=== PATIENT | male | born 1955 ===

== ENCOUNTER 2021-02-06 04:38 | Emergency (ER) | payer OTHER ==
[~2021-02-06] VITALS: Ht 182.9 cm; Wt 110.0 kg
[2021-02-06] MEDS ORDERED: METO50 PO (04:59)
[2021-02-06] MEDS ORDERED: PREG50CA63 PO (04:59)
[2021-02-06] MEDS ORDERED: DABI150 PO (04:59)
[2021-02-06] MEDS ORDERED: FURO40TA5 PO (04:59)
[2021-02-06] MEDS ORDERED: BACITRACIN 0.9 GM PACKET OINTMENT TP ONE (05:01)
[2021-02-06] MEDS ORDERED: LORazepam 2 MG/ML VIAL IVP ONE (06:00)
[2021-02-06] MEDS ORDERED: LORazepam 2 MG/ML VIAL IM ONE (06:00)
[2021-02-06 06:29] LABS: BASOPHILS % (AUTO) 1.2 % (0.0-2.0); HEMATOCRIT 41.6 % (41-53); HEMOGLOBIN 14.1 g/dL (13.5-17.5); LYMPHOCYTES % (AUTO) 15.5 % (22.0-44.0); MEAN CORPUSCULAR VOLUME 88 fL (80-100); MONOCYTES # (AUTO) 0.5 K/uL (0.1-1.0); MONOCYTES % (AUTO) 7.4 % (2.0-9.0); NEUTROPHILS # (AUTO) 4.7 K/uL (1.8-7.7); NEUTROPHILS % (AUTO) 73.9 % (40.0-70.0); PLATELET COUNT (AUTO) 116 K/uL (150-450); RED BLOOD CELL COUNT(AUTO) 4.72 MIL/uL (4.50-5.90); RED CELL DISTRIBUTION WIDTH 14.9 % (11.5-14.5)
[2021-02-06 06:41] LABS: ANION GAP 12 mmol/L (8-16); CALCIUM, TOTAL 8.2 mg/dL (8.8-10.5); CARBON DIOXIDE 23 mmol/L (22-29); CHLORIDE 106 mmol/L (98-107); GLOMERULAR FILTR. RATE CALC > 60 mL/min (>60); GLUCOSE,RANDOM 93 mg/dL (70-110); POTASSIUM 3.9 mmol/L (3.5-5.1); SODIUM SERUM 141 mmol/L (136-145); UREA NITROGEN, BLOOD 12 mg/dL (7-18)
[2021-02-06 06:50] LABS: ALANINE AMINOTRANSFERASE 54 U/L (12-78); ALBUMIN 3.3 g/dL (3.4-5.0); ALKALINE PHOSPHATASE 181 U/L (46-116); ASPARTATE AMINOTRANSFERASE 61 U/L (15-37); BILIRUBIN,TOTAL 0.5 mg/dL (0.1-1.0); TOTAL PROTEIN, SERUM 6.2 g/dL (6.4-8.2)
[2021-02-06 09:06] LABS: COVID AG,FIA SOURCE NASOPHARYNGEAL
[2021-02-06 12:07] VITALS: BP 145/95
== END 2021-02-06 13:47 | disposition short-term general hospital (02) ==
LOC: EMS 04:40
DX: F29 Unspecified psychosis not due to a substance or known physiological condition (principal); Z20.822 Contact with and (suspected) exposure to COVID-19
CPT/HCPCS: 36415; 80053; 85025; 87426; 96372; 99285; G0480; J2060

== ENCOUNTER 2021-06-21 13:53 | Inpatient (IN) | payer OTHER ==
[~2021-06-21] VITALS: Ht 188 cm; Wt 78.5 kg
[~2021-06-21 13:53] MED LIST: DABI150 PO; FURO40TA5 PO; METO50 PO; MULT-1239 PO; PREG50CA63 PO; RISP1TAB48 PO
[2021-06-22] MEDS ORDERED: HALOPERIDOL 5 MG TABLET PO PRN (15:15)
[2021-06-22] MEDS ORDERED: ZOLPIDEM TARTRATE 10 MG TABLET PO PRN (15:15)
[2021-06-22] MEDS ORDERED: INFLUENZA VIRUS VACCINE QVS 2021-22 (6MO+)/PF 60 MCG/0.5 ML SYRINGE IM. ONE (16:00)
[2021-06-22] MEDS ORDERED: METOPROLOL TARTRATE 25 MG TABLET ONE (16:04)
[2021-06-22] MEDS: METOPROLOL TARTRATE 50 MG TABLET PO SCH (17:00)
[2021-06-22] MEDS: DABIGATRAN ETEXILATE MESYLATE 150 MG CAPSULE PO SCH (17:37)
[2021-06-22] MEDS: LORazepam 2 MG TABLET PO PRN (17:39)
[2021-06-22] MEDS: PREGABALIN 50 MG CAPSULE PO SCH (17:39)
[2021-06-22] MEDS: RisperiDONE 1 MG TABLET PO SCH (17:42)
[2021-06-23] MEDS: PREGABALIN 50 MG CAPSULE PO SCH ×4 (09:00→17:00)
[2021-06-23] MEDS: FUROSEMIDE 80 MG TABLET PO SCH ×2 (09:00→09:12)
[2021-06-23] MEDS: DABIGATRAN ETEXILATE MESYLATE 150 MG CAPSULE PO SCH ×3 (09:00→17:00)
[2021-06-23] MEDS: METOPROLOL TARTRATE 50 MG TABLET PO SCH ×3 (09:00→17:00)
[2021-06-23] MEDS: RisperiDONE 1 MG TABLET PO SCH (09:12)
[2021-06-23] MEDS ORDERED: PETROLATUM,WHITE 28 GM JELLY TP PRN (09:15)
[2021-06-23] MEDS ORDERED: ALBUTEROL SULFATE HFA 90 MCG/PUFF 8 GM INHALER IH PRN (09:15)
[2021-06-23] MEDS ORDERED: IBUPROFEN 400 MG TABLET PO PRN (09:15)
[2021-06-23] MEDS ORDERED: CloNIDine HCL 0.1 MG TABLET PO PRN (09:15)
[2021-06-23] MEDS ORDERED: GuaiFENesin/D-METHORPHAN [SUGAR-FREE] 200-20MG/10 ML SYRUP UDCUP PO PRN (09:15)
[2021-06-23] MEDS ORDERED: ACETAMINOPHEN 325 MG TABLET PO PRN (09:15)
[2021-06-23] MEDS ORDERED: DOCUSATE SODIUM 100 MG CAPSULE PO PRN (09:15)
[2021-06-23] MEDS ORDERED: MAGNESIUM HYDROXIDE SUSPENSION 30 ML UDCUP PO PRN (09:15)
[2021-06-23] MEDS ORDERED: LOPERAMIDE HCL 2 MG CAPSULE PO PRN (09:15)
[2021-06-23] MEDS ORDERED: MAG HYDROX/AL HYDROX/SIMETH ES 30 ML SUSPENSION UDCUP PO PRN (09:15)
[2021-06-23] MEDS ORDERED: NICOTINE 14 MG/24 HOUR PATCH TD PRN (09:15)
[2021-06-23] MEDS ORDERED: ONDANSETRON HCL 4 MG TABLET PO PRN (09:15)
[2021-06-23] MEDS: RisperiDONE 2 MG TABLET PO SCH (20:29)
[2021-06-24] MEDS: FUROSEMIDE 80 MG TABLET PO SCH (09:00)
[2021-06-24] MEDS: METOPROLOL TARTRATE 50 MG TABLET PO SCH ×2 (09:00→17:00)
[2021-06-24] MEDS: DABIGATRAN ETEXILATE MESYLATE 150 MG CAPSULE PO SCH ×2 (09:00→17:00)
[2021-06-24] MEDS: PREGABALIN 50 MG CAPSULE PO SCH ×3 (09:00→17:00)
[2021-06-24] MEDS: RisperiDONE 2 MG TABLET PO SCH ×2 (09:00→21:00)
[2021-06-25] MEDS: PREGABALIN 50 MG CAPSULE PO SCH ×4 (08:48→17:00)
[2021-06-25] MEDS: METOPROLOL TARTRATE 50 MG TABLET PO SCH ×3 (08:48→17:00)
[2021-06-25] MEDS: RisperiDONE 2 MG TABLET PO SCH ×3 (08:48→21:00)
[2021-06-25] MEDS: DABIGATRAN ETEXILATE MESYLATE 150 MG CAPSULE PO SCH ×3 (08:48→17:00)
[2021-06-25] MEDS: FUROSEMIDE 80 MG TABLET PO SCH ×2 (08:48→09:00)
[2021-06-25] MEDS ORDERED: DiphenhydrAMINE HCL 50 MG/ML VIAL IM ONE (22:15)
[2021-06-25] MEDS ORDERED: LORazepam 2 MG/ML VIAL IM ONE (22:15)
[2021-06-25] MEDS ORDERED: HALOPERIDOL LACTATE 5 MG/ML VIAL IM ONE (22:15)
[2021-06-26] MEDS: METOPROLOL TARTRATE 50 MG TABLET PO SCH ×2 (09:00→17:00)
[2021-06-26] MEDS: DABIGATRAN ETEXILATE MESYLATE 150 MG CAPSULE PO SCH ×2 (09:00→17:00)
[2021-06-26] MEDS: PREGABALIN 50 MG CAPSULE PO SCH ×3 (09:00→17:00)
[2021-06-26] MEDS: RisperiDONE 2 MG TABLET PO SCH (09:00)
[2021-06-26] MEDS: FUROSEMIDE 80 MG TABLET PO SCH (09:00)
[2021-06-26] MEDS ORDERED: DiphenhydrAMINE HCL 50 MG/ML VIAL IM ONE (10:00)
[2021-06-26] MEDS ORDERED: HALOPERIDOL LACTATE 5 MG/ML VIAL IM ONE (10:00)
[2021-06-26] MEDS ORDERED: LORazepam 2 MG/ML VIAL IM ONE (10:00)
[2021-06-26] MEDS: LORazepam 2 MG TABLET PO PRN (10:09)
[2021-06-26 20:22] LABS: BASOPHILS % (AUTO) 0.7 % (0.0-2.0); EOSINOPHILS % (AUTO) 0.3 % (1.0-6.0); HEMATOCRIT 48.8 % (41-53); HEMOGLOBIN 17.4 g/dL (13.5-17.5); LYMPHOCYTES % (AUTO) 13.4 % (22.0-44.0); MEAN CORPUSCULAR HGB CONC 35.7 G/dL (31.0-37.0); MEAN CORPUSCULAR VOLUME 87 fL (80-100); MONOCYTES # (AUTO) 0.3 K/uL (0.1-1.0); MONOCYTES % (AUTO) 4.2 % (2.0-9.0); NEUTROPHILS % (AUTO) 81.4 % (40.0-70.0); PLATELET COUNT (AUTO) 147 K/uL (150-450); RED BLOOD CELL COUNT(AUTO) 5.62 MIL/uL (4.50-5.90); RED CELL DISTRIBUTION WIDTH 14.1 % (11.5-14.5)
[2021-06-26 20:31] LABS: CALCIUM, TOTAL 9.1 mg/dL (8.8-10.5); CREATININE 1.28 mg/dL (0.60-1.30); POTASSIUM 3.8 mmol/L (3.5-5.1)
[2021-06-26 20:34] LABS: INR 1.1 (0.9-1.1); PROTHROMBIN TIME 11.4 SEC (9.4-11.6)
== END 2021-06-26 20:30 | disposition short-term general hospital (02) | DRG 885 ==
LOC: MERGE 06-22 13:44 → 3EI 06-22 13:44
PROVIDERS: ADMIT Psychiatry & Neurology Psychiatry; ATTEND Psychiatry & Neurology Psychiatry
DX: F20.0 Paranoid schizophrenia (principal); G47.00 Insomnia, unspecified; K59.00 Constipation, unspecified; I48.91 Unspecified atrial fibrillation; Z79.899 Other long term (current) drug therapy
CPT/HCPCS: 80048; 85025; 85610; J1200; J1630; J2060

== ENCOUNTER 2021-06-26 20:30 | Inpatient (IN) | payer OTHER ==
[2021-06-26 20:30] VITALS: BP 131/90
[2021-06-27] MEDS ORDERED: ACETAMINOPHEN 325 MG TABLET PO PRN (09:15)
[2021-06-27] MEDS ORDERED: MORPHINE SULFATE 2 MG/ML SYRINGE IVP PRN (09:15)
[2021-06-27] MEDS ORDERED: BISACODYL 10 MG RECTAL RECTAL SUPPOSITORY PR PRN (09:15)
[2021-06-27] MEDS ORDERED: MAGNESIUM HYDROXIDE SUSPENSION 30 ML UDCUP PO PRN (09:15)
[2021-06-27] MEDS ORDERED: ONDANSETRON HCL 4 MG/2 ML VIAL IVP PRN (09:15)
[2021-06-27] MEDS ORDERED: ZOLPIDEM TARTRATE 5 MG TABLET PO PRN (09:15)
[2021-06-27] MEDS ORDERED: HYDROCODONE/ACETAMINOPHEN 5-325 MG TABLET PO PRN (09:15)
[2021-06-27 19:28] VITALS: BP 137/95
[2021-06-27] MEDS: ASCORBIC ACID 500 MG TABLET PO SCH (21:00)
[2021-06-27] MEDS: METOPROLOL TARTRATE 50 MG TABLET PO SCH (21:00)
[2021-06-27] MEDS: DOCUSATE SODIUM 100 MG CAPSULE PO SCH (21:00)
[2021-06-28] MEDS: ASCORBIC ACID 500 MG TABLET PO SCH (09:00)
[2021-06-28] MEDS ORDERED: PANTOPRAZOLE SODIUM 40 MG DR TABLET PO SCH (09:00)
[2021-06-28] MEDS ORDERED: FUROSEMIDE 40 MG TABLET PO SCH ×2 (09:00→10:15)
[2021-06-28] MEDS: DOCUSATE SODIUM 100 MG CAPSULE PO SCH (09:00)
[2021-06-28] MEDS: METOPROLOL TARTRATE 50 MG TABLET PO SCH (09:00)
[2021-06-28 15:10] LABS: COVID AG,FIA SOURCE NASAL SWAB
== END 2021-06-28 18:38 | DRG 125 ==
LOC: 6S 20:30 → 6N 21:11
PROVIDERS: ADMIT Internal Medicine; ATTEND Internal Medicine
DX: S00.12XA Contusion of left eyelid and periocular area, initial encounter (principal); F20.0 Paranoid schizophrenia; F15.20 Other stimulant dependence, uncomplicated; E78.5 Hyperlipidemia, unspecified; S70.12XA Contusion of left thigh, initial encounter; Z20.822 Contact with and (suspected) exposure to COVID-19; I11.0 Hypertensive heart disease with heart failure; I50.9 Heart failure, unspecified; I48.91 Unspecified atrial fibrillation; F99 Mental disorder, not otherwise specified; I73.9 Peripheral vascular disease, unspecified; X58.XXXA Exposure to other specified factors, initial encounter; Z79.899 Other long term (current) drug therapy; Y93.89 Activity, other specified; Y92.89 Other specified places as the place of occurrence of the external cause; Y99.8 Other external cause status

== ENCOUNTER 2021-06-28 13:54 | Inpatient (IN) | payer OTHER ==
[~2021-06-28] VITALS: Ht 182.9 cm; Wt 109.8 kg
[2021-06-28] MEDS ORDERED: HALOPERIDOL 5 MG TABLET PO PRN (21:00)
[2021-06-29] MEDS: ASCORBIC ACID 500 MG TABLET PO SCH ×2 (09:00→17:00)
[2021-06-29] MEDS: DIVALPROEX SODIUM 500 MG DR TABLET PO SCH ×2 (09:00→17:00)
[2021-06-29] MEDS: METOPROLOL TARTRATE 50 MG TABLET PO SCH ×2 (09:00→17:00)
[2021-06-29] MEDS: RisperiDONE 1 MG TABLET PO SCH ×2 (09:00→17:00)
[2021-06-29] MEDS: FUROSEMIDE 40 MG TABLET PO SCH (09:00)
[2021-06-29] MEDS ORDERED: MAG HYDROX/AL HYDROX/SIMETH ES 30 ML SUSPENSION UDCUP PO PRN (10:15)
[2021-06-29] MEDS ORDERED: LOPERAMIDE HCL 2 MG CAPSULE PO PRN (10:15)
[2021-06-29] MEDS ORDERED: ALBUTEROL SULFATE HFA 90 MCG/PUFF 8 GM INHALER IH PRN (10:15)
[2021-06-29] MEDS ORDERED: IBUPROFEN 400 MG TABLET PO PRN (10:15)
[2021-06-29] MEDS ORDERED: GuaiFENesin/D-METHORPHAN [SUGAR-FREE] 200-20MG/10 ML SYRUP UDCUP PO PRN (10:15)
[2021-06-29] MEDS ORDERED: CloNIDine HCL 0.1 MG TABLET PO PRN (10:15)
[2021-06-29] MEDS ORDERED: ONDANSETRON HCL 4 MG TABLET PO PRN (10:15)
[2021-06-29] MEDS ORDERED: PETROLATUM,WHITE 28 GM JELLY TP PRN (10:15)
[2021-06-29] MEDS ORDERED: MAGNESIUM HYDROXIDE SUSPENSION 30 ML UDCUP PO PRN (10:15)
[2021-06-29] MEDS ORDERED: DOCUSATE SODIUM 100 MG CAPSULE PO PRN (10:15)
[2021-06-29] MEDS ORDERED: METOPROLOL TARTRATE 50 MG TABLET PO SCH (17:00)
[2021-06-30] MEDS: METOPROLOL TARTRATE 50 MG TABLET PO SCH ×2 (08:38→16:12)
[2021-06-30] MEDS: PREGABALIN 50 MG CAPSULE PO SCH (08:38)
[2021-06-30] MEDS: RisperiDONE 1 MG TABLET PO SCH ×2 (08:38→16:13)
[2021-06-30] MEDS: DIVALPROEX SODIUM 500 MG DR TABLET PO SCH ×2 (08:38→16:12)
[2021-06-30] MEDS: FUROSEMIDE 40 MG TABLET PO SCH (08:38)
[2021-06-30] MEDS: ASCORBIC ACID 500 MG TABLET PO SCH ×2 (08:38→16:15)
[2021-06-30 19:30] VITALS: BP 144/96
[2021-06-30 20:30] VITALS: BP 150/100
[2021-06-30 23:00] VITALS: BP 141/83
[2021-07-01] MEDS: FUROSEMIDE 40 MG TABLET PO SCH (09:00)
[2021-07-01] MEDS: ASCORBIC ACID 500 MG TABLET PO SCH ×2 (09:00→17:00)
[2021-07-01] MEDS: DIVALPROEX SODIUM 500 MG DR TABLET PO SCH ×2 (09:00→17:00)
[2021-07-01] MEDS: PREGABALIN 50 MG CAPSULE PO SCH (09:00)
[2021-07-01] MEDS: METOPROLOL TARTRATE 50 MG TABLET PO SCH ×2 (09:00→17:00)
[2021-07-01] MEDS: RisperiDONE 1 MG TABLET PO SCH ×2 (09:00→17:00)
[2021-07-01] MEDS ORDERED: BACITRACIN ZINC/POLYMYXIN B 14.2 GM OINTMENT TP PRN (13:00)
[2021-07-01] MEDS: BACITRACIN ZINC/POLYMYXIN B 14.2 GM OINTMENT TP SCH (17:00)
[2021-07-02] MEDS: DIVALPROEX SODIUM 500 MG DR TABLET PO SCH ×2 (09:00→17:00)
[2021-07-02] MEDS: ASCORBIC ACID 500 MG TABLET PO SCH ×2 (09:00→17:00)
[2021-07-02] MEDS: PREGABALIN 50 MG CAPSULE PO SCH (09:00)
[2021-07-02] MEDS: BACITRACIN ZINC/POLYMYXIN B 14.2 GM OINTMENT TP SCH ×2 (09:00→17:00)
[2021-07-02] MEDS: RisperiDONE 1 MG TABLET PO SCH ×2 (09:00→17:00)
[2021-07-02] MEDS: METOPROLOL TARTRATE 50 MG TABLET PO SCH ×2 (09:00→17:00)
[2021-07-02] MEDS: FUROSEMIDE 40 MG TABLET PO SCH (09:00)
[2021-07-03] MEDS: METOPROLOL TARTRATE 50 MG TABLET PO SCH ×2 (09:00→17:00)
[2021-07-03] MEDS: DIVALPROEX SODIUM 500 MG DR TABLET PO SCH ×2 (09:00→17:00)
[2021-07-03] MEDS: ASCORBIC ACID 500 MG TABLET PO SCH ×2 (09:00→17:00)
[2021-07-03] MEDS: PREGABALIN 50 MG CAPSULE PO SCH (09:00)
[2021-07-03] MEDS: RisperiDONE 1 MG TABLET PO SCH ×2 (09:00→17:00)
[2021-07-03] MEDS: FUROSEMIDE 40 MG TABLET PO SCH (09:00)
[2021-07-03] MEDS: BACITRACIN ZINC/POLYMYXIN B 14.2 GM OINTMENT TP SCH ×2 (09:54→17:00)
[2021-07-04] MEDS: DIVALPROEX SODIUM 500 MG DR TABLET PO SCH ×3 (08:59→17:00)
[2021-07-04] MEDS: BACITRACIN ZINC/POLYMYXIN B 14.2 GM OINTMENT TP SCH ×2 (08:59→16:21)
[2021-07-04] MEDS: PREGABALIN 50 MG CAPSULE PO SCH (08:59)
[2021-07-04] MEDS: METOPROLOL TARTRATE 50 MG TABLET PO SCH ×2 (08:59→16:21)
[2021-07-04] MEDS: RisperiDONE 1 MG TABLET PO SCH ×3 (08:59→17:00)
[2021-07-04] MEDS: ASCORBIC ACID 500 MG TABLET PO SCH ×3 (08:59→17:00)
[2021-07-04] MEDS: FUROSEMIDE 40 MG TABLET PO SCH (08:59)
[2021-07-05] MEDS: RisperiDONE 1 MG TABLET PO SCH ×3 (09:00→17:00)
[2021-07-05] MEDS: PREGABALIN 50 MG CAPSULE PO SCH ×2 (09:00→09:29)
[2021-07-05] MEDS: FUROSEMIDE 40 MG TABLET PO SCH ×2 (09:00→09:29)
[2021-07-05] MEDS: BACITRACIN ZINC/POLYMYXIN B 14.2 GM OINTMENT TP SCH ×3 (09:00→18:06)
[2021-07-05] MEDS: DIVALPROEX SODIUM 500 MG DR TABLET PO SCH ×3 (09:00→17:00)
[2021-07-05] MEDS: ASCORBIC ACID 500 MG TABLET PO SCH ×3 (09:00→17:00)
[2021-07-05] MEDS: MULTIVITAMINS WITH MINERALS, THERAPEUTIC TABLET PO SCH ×2 (09:00→09:30)
[2021-07-05] MEDS: METOPROLOL TARTRATE 50 MG TABLET PO SCH ×3 (09:00→17:00)
[2021-07-05] MEDS: HALOPERIDOL LACTATE 5 MG/ML VIAL IM PRN (17:55)
[2021-07-05] MEDS: ChlorproMAZINE HCL 50 MG/2 ML AMP IM PRN (17:55)
[2021-07-06] MEDS: METOPROLOL TARTRATE 50 MG TABLET PO SCH ×3 (08:57→17:00)
[2021-07-06] MEDS: MULTIVITAMINS WITH MINERALS, THERAPEUTIC TABLET PO SCH ×2 (08:57→09:00)
[2021-07-06] MEDS: DIVALPROEX SODIUM 500 MG DR TABLET PO SCH ×3 (08:57→17:00)
[2021-07-06] MEDS: FUROSEMIDE 40 MG TABLET PO SCH ×2 (08:57→09:00)
[2021-07-06] MEDS: RisperiDONE 2 MG TABLET PO SCH ×3 (08:57→17:00)
[2021-07-06] MEDS: PREGABALIN 50 MG CAPSULE PO SCH ×2 (08:57→09:00)
[2021-07-06] MEDS: ASCORBIC ACID 500 MG TABLET PO SCH ×3 (08:58→17:00)
[2021-07-06] MEDS: BACITRACIN ZINC/POLYMYXIN B 14.2 GM OINTMENT TP SCH ×2 (08:58→17:00)
[2021-07-06] MEDS: ChlorproMAZINE HCL 50 MG/2 ML AMP IM PRN (10:28)
[2021-07-06] MEDS: HALOPERIDOL LACTATE 5 MG/ML VIAL IM PRN ×2 (10:34→17:34)
[2021-07-07] MEDS: MULTIVITAMINS WITH MINERALS, THERAPEUTIC TABLET PO SCH (09:00)
[2021-07-07] MEDS: PREGABALIN 50 MG CAPSULE PO SCH (09:00)
[2021-07-07] MEDS: BACITRACIN ZINC/POLYMYXIN B 14.2 GM OINTMENT TP SCH ×3 (09:00→17:00)
[2021-07-07] MEDS: RisperiDONE 2 MG TABLET PO SCH ×2 (09:00→17:00)
[2021-07-07] MEDS: DIVALPROEX SODIUM 500 MG DR TABLET PO SCH ×2 (09:00→17:00)
[2021-07-07] MEDS: ASCORBIC ACID 500 MG TABLET PO SCH ×2 (09:00→17:00)
[2021-07-07] MEDS: FUROSEMIDE 40 MG TABLET PO SCH (09:00)
[2021-07-07] MEDS: METOPROLOL TARTRATE 50 MG TABLET PO SCH ×2 (09:00→17:00)
[2021-07-07] MEDS: HALOPERIDOL LACTATE 5 MG/ML VIAL IM PRN ×2 (10:34→17:39)
[2021-07-07] MEDS: ChlorproMAZINE HCL 50 MG/2 ML AMP IM PRN (10:34)
[2021-07-07] MEDS ORDERED: LORazepam 2 MG/ML VIAL ONE (19:07)
[2021-07-07] MEDS ORDERED: DiphenhydrAMINE HCL 50 MG/ML VIAL ONE (19:08)
[2021-07-07] MEDS ORDERED: DiphenhydrAMINE HCL 50 MG/ML VIAL IM ONE (19:15)
[2021-07-07] MEDS ORDERED: LORazepam 2 MG/ML VIAL IM ONE (19:15)
[2021-07-08] MEDS: FUROSEMIDE 40 MG TABLET PO SCH (09:00)
[2021-07-08] MEDS: PREGABALIN 50 MG CAPSULE PO SCH (09:00)
[2021-07-08] MEDS: ASCORBIC ACID 500 MG TABLET PO SCH ×2 (09:00→17:00)
[2021-07-08] MEDS: RisperiDONE 2 MG TABLET PO SCH ×2 (09:00→17:00)
[2021-07-08] MEDS: METOPROLOL TARTRATE 50 MG TABLET PO SCH ×2 (09:00→17:00)
[2021-07-08] MEDS: DIVALPROEX SODIUM 500 MG DR TABLET PO SCH ×2 (09:00→17:00)
[2021-07-08] MEDS: MULTIVITAMINS WITH MINERALS, THERAPEUTIC TABLET PO SCH (09:00)
[2021-07-08] MEDS: BACITRACIN ZINC/POLYMYXIN B 14.2 GM OINTMENT TP SCH ×3 (09:34→17:00)
[2021-07-08] MEDS: ChlorproMAZINE HCL 50 MG/2 ML AMP IM PRN ×2 (10:30→17:28)
[2021-07-08] MEDS: HALOPERIDOL LACTATE 5 MG/ML VIAL IM PRN ×2 (10:39→17:28)
[2021-07-08] MEDS: NICOTINE 14 MG/24 HOUR PATCH TD PRN (20:28)
[2021-07-08 23:34] LABS: GLUCOSE, URINE (UA) NEGATIVE (NEGATIVE); KETONES,URINE TRACE mg/dL (NEGATIVE); LEUKOCYTE ESTERASE ,URINE NEGATIVE (NEGATIVE); NITRATE,URINE NEGATIVE (NEGATIVE); OCCULT BLOOD,URINE NEGATIVE (NEGATIVE); PH,URINE 5.5 (5.0-8.0); PROTEIN,URINE NEGATIVE (NEGATIVE); UROBILINOGEN,URINE 0.2 mg/dL (<=1.0)
[2021-07-08 23:35] LABS: BILIRUBIN,URINE PRELIM. POSITIVE (NEGATIVE)
[2021-07-08 23:36] LABS: APPEARANCE,URINE CLOUDY (CLEAR)
[2021-07-08 23:39] LABS: AMPHET/METH SCREEN,URINE NEGATIVE (NEGATIVE); BARBITURATE SCREEN, URINE NEGATIVE (NEGATIVE); BENZODIAZEPINES SCREEN,URINE NEGATIVE (NEGATIVE); CANNABINOID SCREEN,URINE NEGATIVE (NEGATIVE); COCAINE SCREEN,URINE NEGATIVE (NEGATIVE); METHADONE SCREEN, URINE NEGATIVE (NEGATIVE); OPIATE SCREEN,URINE NEGATIVE (NEGATIVE)
[2021-07-08 23:42] LABS: PHENCYCLIDINE SCREEN,URINE NEGATIVE (NEGATIVE)
[2021-07-08 23:46] LABS: BACTERIA,URINE None Seen /HPF (None Seen); RBC,URINE 0-2 /HPF (0-2); WBC,URINE 0-2 /HPF (0-5)
[2021-07-08 23:47] LABS: SQUAMOUS EPITHELIAL CELL,UR Few /LPF (None Seen)
[2021-07-09] MEDS: DIVALPROEX SODIUM 500 MG DR TABLET PO SCH ×2 (09:00→17:00)
[2021-07-09] MEDS: BACITRACIN ZINC/POLYMYXIN B 14.2 GM OINTMENT TP SCH ×2 (09:00→17:00)
[2021-07-09] MEDS: FUROSEMIDE 40 MG TABLET PO SCH (09:00)
[2021-07-09] MEDS: ASCORBIC ACID 500 MG TABLET PO SCH ×2 (09:00→17:00)
[2021-07-09] MEDS: RisperiDONE 2 MG TABLET PO SCH ×2 (09:00→17:00)
[2021-07-09] MEDS: METOPROLOL TARTRATE 50 MG TABLET PO SCH ×2 (09:00→17:00)
[2021-07-09] MEDS: PREGABALIN 50 MG CAPSULE PO SCH (09:00)
[2021-07-09] MEDS: MULTIVITAMINS WITH MINERALS, THERAPEUTIC TABLET PO SCH (09:00)
[2021-07-09] MEDS: ChlorproMAZINE HCL 50 MG/2 ML AMP IM PRN ×2 (09:39→17:50)
[2021-07-09] MEDS: HALOPERIDOL LACTATE 5 MG/ML VIAL IM PRN ×2 (09:39→17:51)
[2021-07-10] MEDS: MULTIVITAMINS WITH MINERALS, THERAPEUTIC TABLET PO SCH (08:57)
[2021-07-10] MEDS: FUROSEMIDE 40 MG TABLET PO SCH (08:57)
[2021-07-10] MEDS: RisperiDONE 2 MG TABLET PO SCH ×2 (08:57→17:00)
[2021-07-10] MEDS: DIVALPROEX SODIUM 500 MG DR TABLET PO SCH ×2 (08:57→17:00)
[2021-07-10] MEDS: PREGABALIN 50 MG CAPSULE PO SCH (08:57)
[2021-07-10] MEDS: METOPROLOL TARTRATE 50 MG TABLET PO SCH ×2 (08:57→17:00)
[2021-07-10] MEDS: ChlorproMAZINE HCL 50 MG/2 ML AMP IM PRN ×2 (08:58→17:46)
[2021-07-10] MEDS: ASCORBIC ACID 500 MG TABLET PO SCH ×2 (08:58→17:00)
[2021-07-10] MEDS: HALOPERIDOL LACTATE 5 MG/ML VIAL IM PRN ×2 (08:59→17:45)
[2021-07-10] MEDS: BACITRACIN ZINC/POLYMYXIN B 14.2 GM OINTMENT TP SCH ×2 (09:00→17:00)
[2021-07-10] MEDS ORDERED: TUBERCULIN, PURIFIED PROTEIN DERIVATIVE 5 TU/0.1 ML SYRINGE ID ONE (10:45)
[2021-07-11] MEDS: ASCORBIC ACID 500 MG TABLET PO SCH ×2 (09:00→16:39)
[2021-07-11] MEDS: PREGABALIN 50 MG CAPSULE PO SCH (09:00)
[2021-07-11] MEDS: FUROSEMIDE 40 MG TABLET PO SCH (09:00)
[2021-07-11] MEDS: BACITRACIN ZINC/POLYMYXIN B 14.2 GM OINTMENT TP SCH ×2 (09:00→16:40)
[2021-07-11] MEDS: MULTIVITAMINS WITH MINERALS, THERAPEUTIC TABLET PO SCH (09:00)
[2021-07-11] MEDS: METOPROLOL TARTRATE 50 MG TABLET PO SCH ×2 (09:00→16:39)
[2021-07-11] MEDS: DIVALPROEX SODIUM 500 MG DR TABLET PO SCH ×2 (09:00→16:39)
[2021-07-11] MEDS: RisperiDONE 2 MG TABLET PO SCH ×2 (09:00→16:39)
[2021-07-11] MEDS: ChlorproMAZINE HCL 50 MG/2 ML AMP IM PRN ×2 (10:54→16:41)
[2021-07-11] MEDS: HALOPERIDOL LACTATE 5 MG/ML VIAL IM PRN ×2 (10:55→16:41)
[2021-07-12] MEDS: PREGABALIN 50 MG CAPSULE PO SCH (09:00)
[2021-07-12] MEDS: ASCORBIC ACID 500 MG TABLET PO SCH ×2 (09:00→17:00)
[2021-07-12] MEDS: BACITRACIN ZINC/POLYMYXIN B 14.2 GM OINTMENT TP SCH ×2 (09:00→17:00)
[2021-07-12] MEDS: MULTIVITAMINS WITH MINERALS, THERAPEUTIC TABLET PO SCH (09:00)
[2021-07-12] MEDS: METOPROLOL TARTRATE 50 MG TABLET PO SCH ×2 (09:00→17:00)
[2021-07-12] MEDS: FUROSEMIDE 40 MG TABLET PO SCH (09:00)
[2021-07-12] MEDS: DIVALPROEX SODIUM 500 MG DR TABLET PO SCH ×2 (09:00→17:00)
[2021-07-12] MEDS: RisperiDONE 2 MG TABLET PO SCH ×2 (09:00→17:00)
[2021-07-12] MEDS: ChlorproMAZINE HCL 50 MG/2 ML AMP IM PRN ×2 (10:19→17:27)
[2021-07-12] MEDS: HALOPERIDOL LACTATE 5 MG/ML VIAL IM PRN ×2 (10:21→17:27)
[2021-07-13] MEDS: METOPROLOL TARTRATE 50 MG TABLET PO SCH ×2 (09:00→16:29)
[2021-07-13] MEDS: MULTIVITAMINS WITH MINERALS, THERAPEUTIC TABLET PO SCH (09:00)
[2021-07-13] MEDS: ASCORBIC ACID 500 MG TABLET PO SCH ×2 (09:00→16:29)
[2021-07-13] MEDS: FUROSEMIDE 40 MG TABLET PO SCH (09:00)
[2021-07-13] MEDS: BACITRACIN ZINC/POLYMYXIN B 14.2 GM OINTMENT TP SCH ×2 (09:00→17:00)
[2021-07-13] MEDS: DIVALPROEX SODIUM 500 MG DR TABLET PO SCH ×2 (09:00→16:29)
[2021-07-13] MEDS: RisperiDONE 2 MG TABLET PO SCH ×2 (09:00→17:00)
[2021-07-13] MEDS: PREGABALIN 50 MG CAPSULE PO SCH (09:00)
[2021-07-13] MEDS: ChlorproMAZINE HCL 50 MG/2 ML AMP IM PRN ×2 (09:09→17:00)
[2021-07-13] MEDS: HALOPERIDOL LACTATE 5 MG/ML VIAL IM PRN ×2 (09:11→16:59)
[2021-07-13] MEDS ORDERED: LORazepam 2 MG/ML VIAL ONE (14:13)
[2021-07-13] MEDS ORDERED: DiphenhydrAMINE HCL 50 MG/ML VIAL ONE (14:13)
[2021-07-13] MEDS ORDERED: FluPHENAZine HCL 2.5 MG/ML INJ IM ONE ×2 (14:13→14:15)
[2021-07-13] MEDS ORDERED: DiphenhydrAMINE HCL 50 MG/ML VIAL IM ONE (14:15)
[2021-07-13] MEDS ORDERED: LORazepam 2 MG/ML VIAL IM ONE (14:15)
[2021-07-14] MEDS: BACITRACIN ZINC/POLYMYXIN B 14.2 GM OINTMENT TP SCH (08:17)
[2021-07-14] MEDS: PREGABALIN 50 MG CAPSULE PO SCH (09:00)
[2021-07-14] MEDS: FUROSEMIDE 40 MG TABLET PO SCH (09:00)
[2021-07-14] MEDS: MULTIVITAMINS WITH MINERALS, THERAPEUTIC TABLET PO SCH (09:00)
[2021-07-14] MEDS: ASCORBIC ACID 500 MG TABLET PO SCH ×2 (09:00→16:30)
[2021-07-14] MEDS: DIVALPROEX SODIUM 500 MG DR TABLET PO SCH ×2 (09:00→16:30)
[2021-07-14] MEDS: METOPROLOL TARTRATE 50 MG TABLET PO SCH ×2 (09:00→16:30)
[2021-07-14] MEDS: RisperiDONE 2 MG TABLET PO SCH ×2 (09:00→16:30)
[2021-07-14] MEDS: ChlorproMAZINE HCL 50 MG/2 ML AMP IM PRN ×2 (09:34→16:50)
[2021-07-14] MEDS: HALOPERIDOL LACTATE 5 MG/ML VIAL IM PRN ×2 (09:36→16:50)
[2021-07-14 21:10] LABS: COVID AG,FIA SOURCE NASAL SWAB
[2021-07-15] MEDS: METOPROLOL TARTRATE 50 MG TABLET PO SCH ×2 (09:00→16:39)
[2021-07-15] MEDS: RisperiDONE 2 MG TABLET PO SCH ×2 (09:00→16:39)
[2021-07-15] MEDS: DIVALPROEX SODIUM 500 MG DR TABLET PO SCH ×2 (09:00→16:39)
[2021-07-15] MEDS: ASCORBIC ACID 500 MG TABLET PO SCH ×2 (09:00→16:39)
[2021-07-15] MEDS: PREGABALIN 50 MG CAPSULE PO SCH (09:00)
[2021-07-15] MEDS: FUROSEMIDE 40 MG TABLET PO SCH (09:00)
[2021-07-15] MEDS: MULTIVITAMINS WITH MINERALS, THERAPEUTIC TABLET PO SCH (09:00)
[2021-07-15] MEDS: ChlorproMAZINE HCL 50 MG/2 ML AMP IM PRN ×2 (09:58→16:55)
[2021-07-15] MEDS: HALOPERIDOL LACTATE 5 MG/ML VIAL IM PRN ×2 (09:59→16:54)
[2021-07-16] MEDS: PREGABALIN 50 MG CAPSULE PO SCH ×2 (09:00→12:26)
[2021-07-16] MEDS: DIVALPROEX SODIUM 500 MG DR TABLET PO SCH ×2 (09:00→16:30)
[2021-07-16] MEDS: FUROSEMIDE 40 MG TABLET PO SCH (09:00)
[2021-07-16] MEDS: METOPROLOL TARTRATE 50 MG TABLET PO SCH ×3 (09:00→16:30)
[2021-07-16] MEDS: MULTIVITAMINS WITH MINERALS, THERAPEUTIC TABLET PO SCH ×2 (09:00→12:26)
[2021-07-16] MEDS: ASCORBIC ACID 500 MG TABLET PO SCH ×3 (09:00→16:31)
[2021-07-16] MEDS: RisperiDONE 2 MG TABLET PO SCH ×2 (09:00→16:31)
[2021-07-16] MEDS: ChlorproMAZINE HCL 50 MG/2 ML AMP IM PRN ×2 (10:19→16:46)
[2021-07-16] MEDS: HALOPERIDOL LACTATE 5 MG/ML VIAL IM PRN (10:19)
[2021-07-17] MEDS: RisperiDONE 2 MG TABLET PO SCH ×3 (08:52→17:00)
[2021-07-17] MEDS: PREGABALIN 50 MG CAPSULE PO SCH ×2 (08:52→09:00)
[2021-07-17] MEDS: FUROSEMIDE 40 MG TABLET PO SCH ×2 (08:52→09:00)
[2021-07-17] MEDS: MULTIVITAMINS WITH MINERALS, THERAPEUTIC TABLET PO SCH ×2 (08:52→09:00)
[2021-07-17] MEDS: METOPROLOL TARTRATE 50 MG TABLET PO SCH ×3 (08:52→17:00)
[2021-07-17] MEDS: ASCORBIC ACID 500 MG TABLET PO SCH ×3 (08:52→17:00)
[2021-07-17] MEDS: DIVALPROEX SODIUM 500 MG DR TABLET PO SCH ×3 (08:52→17:00)
[2021-07-17] MEDS: ChlorproMAZINE HCL 50 MG/2 ML AMP IM PRN ×2 (09:52→17:54)
[2021-07-17] MEDS: HALOPERIDOL LACTATE 5 MG/ML VIAL IM PRN ×2 (09:53→17:55)
[2021-07-18] MEDS: METOPROLOL TARTRATE 50 MG TABLET PO SCH ×2 (09:00→17:00)
[2021-07-18] MEDS: ASCORBIC ACID 500 MG TABLET PO SCH ×2 (09:00→17:00)
[2021-07-18] MEDS: FUROSEMIDE 40 MG TABLET PO SCH (09:00)
[2021-07-18] MEDS: DIVALPROEX SODIUM 500 MG DR TABLET PO SCH ×2 (09:00→17:00)
[2021-07-18] MEDS: RisperiDONE 2 MG TABLET PO SCH ×2 (09:00→17:00)
[2021-07-18] MEDS: PREGABALIN 50 MG CAPSULE PO SCH (09:00)
[2021-07-18] MEDS: MULTIVITAMINS WITH MINERALS, THERAPEUTIC TABLET PO SCH (09:00)
[2021-07-18] MEDS: ChlorproMAZINE HCL 50 MG/2 ML AMP IM PRN ×2 (11:59→17:49)
[2021-07-18] MEDS: HALOPERIDOL LACTATE 5 MG/ML VIAL IM PRN ×2 (11:59→17:50)
[2021-07-19] MEDS: MULTIVITAMINS WITH MINERALS, THERAPEUTIC TABLET PO SCH (09:00)
[2021-07-19] MEDS: METOPROLOL TARTRATE 50 MG TABLET PO SCH ×2 (09:00→17:00)
[2021-07-19] MEDS: ASCORBIC ACID 500 MG TABLET PO SCH ×2 (09:00→17:00)
[2021-07-19] MEDS: PREGABALIN 50 MG CAPSULE PO SCH (09:00)
[2021-07-19] MEDS: DIVALPROEX SODIUM 500 MG DR TABLET PO SCH ×2 (09:00→17:00)
[2021-07-19] MEDS: FUROSEMIDE 40 MG TABLET PO SCH (09:00)
[2021-07-19] MEDS: RisperiDONE 2 MG TABLET PO SCH ×2 (09:00→17:00)
[2021-07-19] MEDS: HALOPERIDOL LACTATE 5 MG/ML VIAL IM PRN ×2 (10:15→18:06)
[2021-07-19] MEDS: ChlorproMAZINE HCL 50 MG/2 ML AMP IM PRN ×2 (10:16→17:57)
[2021-07-20] MEDS: METOPROLOL TARTRATE 50 MG TABLET PO SCH ×2 (09:00→17:00)
[2021-07-20] MEDS: PREGABALIN 50 MG CAPSULE PO SCH (09:00)
[2021-07-20] MEDS: ASCORBIC ACID 500 MG TABLET PO SCH ×2 (09:00→17:00)
[2021-07-20] MEDS: MULTIVITAMINS WITH MINERALS, THERAPEUTIC TABLET PO SCH (09:00)
[2021-07-20] MEDS: FUROSEMIDE 40 MG TABLET PO SCH (09:00)
[2021-07-20] MEDS: RisperiDONE 2 MG TABLET PO SCH ×2 (09:00→17:00)
[2021-07-20] MEDS: DIVALPROEX SODIUM 500 MG DR TABLET PO SCH ×2 (09:00→17:00)
[2021-07-20] MEDS: HALOPERIDOL LACTATE 5 MG/ML VIAL IM PRN ×2 (09:56→18:04)
[2021-07-20] MEDS: ChlorproMAZINE HCL 50 MG/2 ML AMP IM PRN ×2 (09:57→18:04)
[2021-07-21] MEDS: PREGABALIN 50 MG CAPSULE PO SCH (09:00)
[2021-07-21] MEDS: ASCORBIC ACID 500 MG TABLET PO SCH ×2 (09:00→16:57)
[2021-07-21] MEDS: DIVALPROEX SODIUM 500 MG DR TABLET PO SCH ×2 (09:00→16:57)
[2021-07-21] MEDS: FUROSEMIDE 40 MG TABLET PO SCH (09:00)
[2021-07-21] MEDS: MULTIVITAMINS WITH MINERALS, THERAPEUTIC TABLET PO SCH (09:00)
[2021-07-21] MEDS: METOPROLOL TARTRATE 50 MG TABLET PO SCH ×2 (09:00→16:57)
[2021-07-21] MEDS: RisperiDONE 2 MG TABLET PO SCH ×2 (09:00→16:57)
[2021-07-21] MEDS: ChlorproMAZINE HCL 50 MG/2 ML AMP IM PRN (10:02)
[2021-07-21] MEDS: HALOPERIDOL LACTATE 5 MG/ML VIAL IM PRN (10:03)
[2021-07-21] MEDS: ZOLPIDEM TARTRATE 10 MG TABLET PO PRN ×2 (20:30→21:30)
[2021-07-22] MEDS: DIVALPROEX SODIUM 500 MG DR TABLET PO SCH ×2 (09:00→16:42)
[2021-07-22] MEDS: METOPROLOL TARTRATE 50 MG TABLET PO SCH ×2 (09:00→16:42)
[2021-07-22] MEDS: ASCORBIC ACID 500 MG TABLET PO SCH ×2 (09:00→16:42)
[2021-07-22] MEDS: RisperiDONE 2 MG TABLET PO SCH ×2 (09:00→16:42)
[2021-07-22] MEDS: MULTIVITAMINS WITH MINERALS, THERAPEUTIC TABLET PO SCH (09:00)
[2021-07-22] MEDS: FUROSEMIDE 40 MG TABLET PO SCH (09:00)
[2021-07-22] MEDS: PREGABALIN 50 MG CAPSULE PO SCH (09:00)
[2021-07-22] MEDS: ChlorproMAZINE HCL 50 MG/2 ML AMP IM PRN (10:48)
[2021-07-22] MEDS: HALOPERIDOL LACTATE 5 MG/ML VIAL IM PRN (10:48)
[2021-07-23] MEDS: FUROSEMIDE 40 MG TABLET PO SCH (09:00)
[2021-07-23] MEDS: DIVALPROEX SODIUM 500 MG DR TABLET PO SCH ×2 (09:00→17:00)
[2021-07-23] MEDS: RisperiDONE 2 MG TABLET PO SCH ×2 (09:00→17:00)
[2021-07-23] MEDS: ASCORBIC ACID 500 MG TABLET PO SCH ×2 (09:00→17:00)
[2021-07-23] MEDS: MULTIVITAMINS WITH MINERALS, THERAPEUTIC TABLET PO SCH (09:00)
[2021-07-23] MEDS: PREGABALIN 50 MG CAPSULE PO SCH (09:00)
[2021-07-23] MEDS: METOPROLOL TARTRATE 50 MG TABLET PO SCH ×2 (09:00→17:00)
[2021-07-23] MEDS: ChlorproMAZINE HCL 50 MG/2 ML AMP IM PRN ×2 (10:07→18:04)
[2021-07-23] MEDS: HALOPERIDOL LACTATE 5 MG/ML VIAL IM PRN ×2 (10:07→18:03)
[2021-07-23] MEDS: LORazepam 2 MG TABLET PO PRN (12:29)
[2021-07-24 08:32] VITALS: BP 134/70
[2021-07-24] MEDS: FUROSEMIDE 40 MG TABLET PO SCH (09:00)
[2021-07-24] MEDS: RisperiDONE 2 MG TABLET PO SCH ×2 (09:00→17:00)
[2021-07-24] MEDS: DIVALPROEX SODIUM 500 MG DR TABLET PO SCH ×2 (09:00→17:00)
[2021-07-24] MEDS: METOPROLOL TARTRATE 50 MG TABLET PO SCH ×2 (09:00→17:00)
[2021-07-24] MEDS: ASCORBIC ACID 500 MG TABLET PO SCH ×2 (09:00→17:00)
[2021-07-24] MEDS: PREGABALIN 50 MG CAPSULE PO SCH (09:00)
[2021-07-24] MEDS: MULTIVITAMINS WITH MINERALS, THERAPEUTIC TABLET PO SCH (09:00)
[2021-07-24] MEDS: ChlorproMAZINE HCL 50 MG/2 ML AMP IM PRN ×2 (09:39→17:09)
[2021-07-24] MEDS: HALOPERIDOL LACTATE 5 MG/ML VIAL IM PRN ×2 (09:40→17:09)
[2021-07-25] MEDS: FUROSEMIDE 40 MG TABLET PO SCH (09:00)
[2021-07-25] MEDS: METOPROLOL TARTRATE 50 MG TABLET PO SCH ×2 (09:00→16:10)
[2021-07-25] MEDS: MULTIVITAMINS WITH MINERALS, THERAPEUTIC TABLET PO SCH (09:00)
[2021-07-25] MEDS: RisperiDONE 2 MG TABLET PO SCH ×2 (09:00→16:10)
[2021-07-25] MEDS: DIVALPROEX SODIUM 500 MG DR TABLET PO SCH ×2 (09:00→16:10)
[2021-07-25] MEDS: ASCORBIC ACID 500 MG TABLET PO SCH ×2 (09:00→16:10)
[2021-07-25] MEDS: PREGABALIN 50 MG CAPSULE PO SCH (09:00)
[2021-07-25] MEDS: ChlorproMAZINE HCL 50 MG/2 ML AMP IM PRN ×2 (10:11→16:06)
[2021-07-25] MEDS: HALOPERIDOL LACTATE 5 MG/ML VIAL IM PRN ×2 (10:12→16:06)
[2021-07-25 16:01] VITALS: BP 119/62
[2021-07-25] MEDS ORDERED: LORazepam 2 MG/ML VIAL IM ONE (16:06)
[2021-07-25] MEDS ORDERED: LORazepam 2 MG TABLET PO ONE (16:06)
[2021-07-25] MEDS ORDERED: LORazepam 2 MG/ML VIAL ONE (16:06)
[2021-07-26] MEDS: DIVALPROEX SODIUM 500 MG DR TABLET PO SCH ×2 (09:00→17:00)
[2021-07-26] MEDS: FUROSEMIDE 40 MG TABLET PO SCH (09:00)
[2021-07-26] MEDS: PREGABALIN 50 MG CAPSULE PO SCH (09:00)
[2021-07-26] MEDS: RisperiDONE 2 MG TABLET PO SCH ×2 (09:00→17:00)
[2021-07-26] MEDS: METOPROLOL TARTRATE 50 MG TABLET PO SCH ×2 (09:00→17:00)
[2021-07-26] MEDS: MULTIVITAMINS WITH MINERALS, THERAPEUTIC TABLET PO SCH (09:00)
[2021-07-26] MEDS: ASCORBIC ACID 500 MG TABLET PO SCH ×2 (09:00→17:00)
[2021-07-26] MEDS: ChlorproMAZINE HCL 50 MG/2 ML AMP IM PRN ×2 (10:24→18:34)
[2021-07-26] MEDS: HALOPERIDOL LACTATE 5 MG/ML VIAL IM PRN ×2 (10:25→18:34)
[2021-07-27] MEDS: DIVALPROEX SODIUM 500 MG DR TABLET PO SCH ×2 (09:00→17:00)
[2021-07-27] MEDS: PREGABALIN 50 MG CAPSULE PO SCH (09:00)
[2021-07-27] MEDS: MULTIVITAMINS WITH MINERALS, THERAPEUTIC TABLET PO SCH (09:00)
[2021-07-27] MEDS: ASCORBIC ACID 500 MG TABLET PO SCH ×2 (09:00→17:00)
[2021-07-27] MEDS: METOPROLOL TARTRATE 50 MG TABLET PO SCH ×2 (09:00→17:00)
[2021-07-27] MEDS: RisperiDONE 2 MG TABLET PO SCH ×2 (09:00→17:00)
[2021-07-27] MEDS: FUROSEMIDE 40 MG TABLET PO SCH (09:00)
[2021-07-27] MEDS: HALOPERIDOL LACTATE 5 MG/ML VIAL IM PRN ×2 (09:36→17:17)
[2021-07-27] MEDS: ChlorproMAZINE HCL 50 MG/2 ML AMP IM PRN ×2 (09:37→17:17)
[2021-07-28 08:28] VITALS: BP 153/87
[2021-07-28] MEDS: ASCORBIC ACID 500 MG TABLET PO SCH ×2 (09:00→16:33)
[2021-07-28] MEDS: METOPROLOL TARTRATE 50 MG TABLET PO SCH ×2 (09:00→16:32)
[2021-07-28] MEDS: RisperiDONE 2 MG TABLET PO SCH ×2 (09:00→16:32)
[2021-07-28] MEDS: DIVALPROEX SODIUM 500 MG DR TABLET PO SCH ×2 (09:00→16:32)
[2021-07-28] MEDS: PREGABALIN 50 MG CAPSULE PO SCH (09:00)
[2021-07-28] MEDS: MULTIVITAMINS WITH MINERALS, THERAPEUTIC TABLET PO SCH (09:00)
[2021-07-28] MEDS: FUROSEMIDE 40 MG TABLET PO SCH (09:00)
[2021-07-28] MEDS: ChlorproMAZINE HCL 50 MG/2 ML AMP IM PRN ×2 (09:21→16:50)
[2021-07-28] MEDS: HALOPERIDOL LACTATE 5 MG/ML VIAL IM PRN ×2 (09:23→16:50)
[2021-07-29] MEDS: METOPROLOL TARTRATE 50 MG TABLET PO SCH ×2 (09:00→16:55)
[2021-07-29] MEDS: FUROSEMIDE 40 MG TABLET PO SCH (09:00)
[2021-07-29] MEDS: MULTIVITAMINS WITH MINERALS, THERAPEUTIC TABLET PO SCH (09:00)
[2021-07-29] MEDS: PREGABALIN 50 MG CAPSULE PO SCH (09:00)
[2021-07-29] MEDS: ASCORBIC ACID 500 MG TABLET PO SCH ×2 (09:00→16:55)
[2021-07-29] MEDS: DIVALPROEX SODIUM 500 MG DR TABLET PO SCH ×2 (09:00→16:55)
[2021-07-29] MEDS: RisperiDONE 2 MG TABLET PO SCH ×2 (09:00→16:55)
[2021-07-29] MEDS: ChlorproMAZINE HCL 50 MG/2 ML AMP IM PRN ×2 (09:36→16:56)
[2021-07-29] MEDS: HALOPERIDOL LACTATE 5 MG/ML VIAL IM PRN ×2 (09:37→16:55)
[2021-07-29] MEDS: LORazepam 2 MG TABLET PO PRN (13:17)
[2021-07-29 15:13] LABS: COVID AG,FIA SOURCE NASOPHARYNGEAL
[2021-07-30 01:50] VITALS: BP 151/99
[2021-07-30] MEDS: MULTIVITAMINS WITH MINERALS, THERAPEUTIC TABLET PO SCH (09:00)
[2021-07-30] MEDS: RisperiDONE 2 MG TABLET PO SCH ×2 (09:00→17:05)
[2021-07-30] MEDS: FUROSEMIDE 40 MG TABLET PO SCH (09:00)
[2021-07-30] MEDS: DIVALPROEX SODIUM 500 MG DR TABLET PO SCH ×2 (09:00→17:05)
[2021-07-30] MEDS: PREGABALIN 50 MG CAPSULE PO SCH (09:00)
[2021-07-30] MEDS: METOPROLOL TARTRATE 50 MG TABLET PO SCH ×2 (09:00→17:00)
[2021-07-30] MEDS: ASCORBIC ACID 500 MG TABLET PO SCH ×2 (09:00→17:00)
[2021-07-30] MEDS: LORazepam 2 MG TABLET PO PRN ×2 (10:33→17:05)
[2021-07-30] MEDS: ChlorproMAZINE HCL 50 MG/2 ML AMP IM PRN (10:33)
[2021-07-30] MEDS: HALOPERIDOL LACTATE 5 MG/ML VIAL IM PRN (10:34)
[2021-07-31] MEDS: DIVALPROEX SODIUM 500 MG DR TABLET PO SCH ×2 (09:00→17:00)
[2021-07-31] MEDS: FUROSEMIDE 40 MG TABLET PO SCH (09:00)
[2021-07-31] MEDS: METOPROLOL TARTRATE 50 MG TABLET PO SCH ×2 (09:00→17:00)
[2021-07-31] MEDS: RisperiDONE 2 MG TABLET PO SCH ×2 (09:00→17:00)
[2021-07-31] MEDS: ASCORBIC ACID 500 MG TABLET PO SCH ×2 (09:00→17:00)
[2021-07-31] MEDS: MULTIVITAMINS WITH MINERALS, THERAPEUTIC TABLET PO SCH (09:00)
[2021-07-31] MEDS: PREGABALIN 50 MG CAPSULE PO SCH (09:00)
[2021-07-31] MEDS: HALOPERIDOL LACTATE 5 MG/ML VIAL IM PRN ×2 (09:38→17:15)
[2021-07-31] MEDS: ChlorproMAZINE HCL 50 MG/2 ML AMP IM PRN ×2 (09:38→17:16)
[2021-07-31] MEDS: LORazepam 2 MG TABLET PO PRN ×2 (12:56→18:22)
[2021-08-01] MEDS: METOPROLOL TARTRATE 50 MG TABLET PO SCH ×2 (09:00→17:00)
[2021-08-01] MEDS: MULTIVITAMINS WITH MINERALS, THERAPEUTIC TABLET PO SCH (09:00)
[2021-08-01] MEDS: ASCORBIC ACID 500 MG TABLET PO SCH ×2 (09:00→17:00)
[2021-08-01] MEDS: FUROSEMIDE 40 MG TABLET PO SCH (09:00)
[2021-08-01] MEDS: PREGABALIN 50 MG CAPSULE PO SCH (09:00)
[2021-08-01] MEDS: RisperiDONE 2 MG TABLET PO SCH ×2 (09:00→17:00)
[2021-08-01] MEDS: DIVALPROEX SODIUM 500 MG DR TABLET PO SCH ×2 (09:00→17:00)
[2021-08-01] MEDS: ChlorproMAZINE HCL 50 MG/2 ML AMP IM PRN ×2 (10:14→16:59)
[2021-08-01] MEDS: HALOPERIDOL LACTATE 5 MG/ML VIAL IM PRN ×2 (10:14→16:59)
[2021-08-01] MEDS: LORazepam 2 MG TABLET PO PRN ×2 (11:23→18:06)
[2021-08-01] MEDS: ACETAMINOPHEN 325 MG TABLET PO PRN (18:24)
[2021-08-02] MEDS: RisperiDONE 2 MG TABLET PO SCH ×2 (09:00→16:57)
[2021-08-02] MEDS: ASCORBIC ACID 500 MG TABLET PO SCH ×2 (09:00→16:57)
[2021-08-02] MEDS: PREGABALIN 50 MG CAPSULE PO SCH (09:00)
[2021-08-02] MEDS: METOPROLOL TARTRATE 50 MG TABLET PO SCH ×2 (09:00→16:57)
[2021-08-02] MEDS: MULTIVITAMINS WITH MINERALS, THERAPEUTIC TABLET PO SCH (09:00)
[2021-08-02] MEDS: DIVALPROEX SODIUM 500 MG DR TABLET PO SCH ×2 (09:00→16:57)
[2021-08-02] MEDS: FUROSEMIDE 40 MG TABLET PO SCH (09:00)
[2021-08-02] MEDS: LORazepam 2 MG TABLET PO PRN ×2 (09:26→16:58)
[2021-08-02] MEDS: ChlorproMAZINE HCL 50 MG/2 ML AMP IM PRN (11:13)
[2021-08-02] MEDS: HALOPERIDOL LACTATE 5 MG/ML VIAL IM PRN (11:14)
[2021-08-03] MEDS: DIVALPROEX SODIUM 500 MG DR TABLET PO SCH ×2 (09:00→16:33)
[2021-08-03] MEDS: METOPROLOL TARTRATE 50 MG TABLET PO SCH ×2 (09:00→16:33)
[2021-08-03] MEDS: PREGABALIN 50 MG CAPSULE PO SCH (09:00)
[2021-08-03] MEDS: ASCORBIC ACID 500 MG TABLET PO SCH ×2 (09:00→16:34)
[2021-08-03] MEDS: RisperiDONE 2 MG TABLET PO SCH ×2 (09:00→16:33)
[2021-08-03] MEDS: FUROSEMIDE 40 MG TABLET PO SCH (09:00)
[2021-08-03] MEDS: MULTIVITAMINS WITH MINERALS, THERAPEUTIC TABLET PO SCH (09:00)
[2021-08-03] MEDS: HALOPERIDOL LACTATE 5 MG/ML VIAL IM PRN (10:15)
[2021-08-03] MEDS: ChlorproMAZINE HCL 50 MG/2 ML AMP IM PRN (10:15)
[2021-08-03 11:22] VITALS: BP 116/64
[2021-08-03] MEDS: LORazepam 2 MG TABLET PO PRN ×2 (11:27→16:34)
[2021-08-03 16:34] VITALS: BP 149/70
[2021-08-04] MEDS: PREGABALIN 50 MG CAPSULE PO SCH (09:00)
[2021-08-04] MEDS: ASCORBIC ACID 500 MG TABLET PO SCH ×2 (09:00→16:39)
[2021-08-04] MEDS: DIVALPROEX SODIUM 500 MG DR TABLET PO SCH ×2 (09:00→16:39)
[2021-08-04] MEDS: FUROSEMIDE 40 MG TABLET PO SCH (09:00)
[2021-08-04] MEDS: RisperiDONE 2 MG TABLET PO SCH ×2 (09:00→16:39)
[2021-08-04] MEDS: METOPROLOL TARTRATE 50 MG TABLET PO SCH ×2 (09:00→16:39)
[2021-08-04] MEDS: MULTIVITAMINS WITH MINERALS, THERAPEUTIC TABLET PO SCH (09:00)
[2021-08-04] MEDS: HALOPERIDOL LACTATE 5 MG/ML VIAL IM PRN (09:51)
[2021-08-04] MEDS: ChlorproMAZINE HCL 50 MG/2 ML AMP IM PRN (09:51)
[2021-08-04] MEDS: LORazepam 2 MG TABLET PO PRN ×2 (11:21→17:59)
[2021-08-04 16:00] VITALS: BP 135/78
[2021-08-05] MEDS: LORazepam 2 MG TABLET PO PRN ×3 (02:52→16:54)
[2021-08-05 03:07] VITALS: BP 117/74
[2021-08-05] MEDS: ASCORBIC ACID 500 MG TABLET PO SCH ×3 (09:00→16:53)
[2021-08-05] MEDS: MULTIVITAMINS WITH MINERALS, THERAPEUTIC TABLET PO SCH ×3 (09:00→10:54)
[2021-08-05] MEDS: DIVALPROEX SODIUM 500 MG DR TABLET PO SCH ×2 (10:35→16:53)
[2021-08-05] MEDS: PREGABALIN 50 MG CAPSULE PO SCH (10:35)
[2021-08-05] MEDS: FUROSEMIDE 40 MG TABLET PO SCH (10:35)
[2021-08-05] MEDS: METOPROLOL TARTRATE 50 MG TABLET PO SCH ×2 (10:35→16:53)
[2021-08-05] MEDS: RisperiDONE 2 MG TABLET PO SCH ×2 (10:35→16:53)
[2021-08-06 03:20] VITALS: BP 110/60
[2021-08-06] MEDS: LORazepam 2 MG TABLET PO PRN ×3 (03:29→15:00)
[2021-08-06] MEDS: METOPROLOL TARTRATE 50 MG TABLET PO SCH ×3 (09:00→16:02)
[2021-08-06] MEDS: PREGABALIN 50 MG CAPSULE PO SCH (10:14)
[2021-08-06] MEDS: ASCORBIC ACID 500 MG TABLET PO SCH ×2 (10:14→16:02)
[2021-08-06] MEDS: RisperiDONE 2 MG TABLET PO SCH ×2 (10:14→16:02)
[2021-08-06] MEDS: MULTIVITAMINS WITH MINERALS, THERAPEUTIC TABLET PO SCH (10:14)
[2021-08-06] MEDS: DIVALPROEX SODIUM 500 MG DR TABLET PO SCH ×2 (10:15→16:02)
[2021-08-06] MEDS: FUROSEMIDE 40 MG TABLET PO SCH (10:15)
[2021-08-06 11:26] LABS: COVID AG,FIA SOURCE NASOPHARYNGEAL
[2021-08-06] MEDS: NICOTINE 14 MG/24 HOUR PATCH TD PRN (18:38)
[2021-08-07] MEDS: MULTIVITAMINS WITH MINERALS, THERAPEUTIC TABLET PO SCH (09:00)
[2021-08-07] MEDS: METOPROLOL TARTRATE 50 MG TABLET PO SCH ×2 (09:00→16:36)
[2021-08-07] MEDS: DIVALPROEX SODIUM 500 MG DR TABLET PO SCH ×3 (09:00→16:45)
[2021-08-07] MEDS: ASCORBIC ACID 500 MG TABLET PO SCH ×2 (09:00→16:45)
[2021-08-07] MEDS: PREGABALIN 50 MG CAPSULE PO SCH (09:00)
[2021-08-07] MEDS: FUROSEMIDE 40 MG TABLET PO SCH (09:00)
[2021-08-07] MEDS ORDERED: ARIPiprazole LAUROXIL ER SUSPENSION 882 MG/3.2 ML SYRINGE IM ONE (09:45)
[2021-08-07] MEDS ORDERED: ARIPiprazole LAUROXIL,SUBMICR. ER SUSPENSION 675 MG/2.4 ML SYRINGE IM ONE (09:45)
[2021-08-07] MEDS ORDERED: ARIPiprazole 15 MG TABLET PO ONE (09:45)
[2021-08-07] MEDS: LORazepam 2 MG TABLET PO PRN ×2 (11:25→16:36)
[2021-08-07] MEDS: ChlorproMAZINE HCL 50 MG/2 ML AMP IM PRN (11:26)
[2021-08-07 16:00] VITALS: BP 146/98
[2021-08-08] MEDS: ASCORBIC ACID 500 MG TABLET PO SCH ×2 (09:00→15:59)
[2021-08-08] MEDS: FUROSEMIDE 40 MG TABLET PO SCH (09:00)
[2021-08-08] MEDS: PREGABALIN 50 MG CAPSULE PO SCH (09:00)
[2021-08-08] MEDS: METOPROLOL TARTRATE 50 MG TABLET PO SCH ×2 (09:00→17:00)
[2021-08-08] MEDS: MULTIVITAMINS WITH MINERALS, THERAPEUTIC TABLET PO SCH (09:00)
[2021-08-08] MEDS: DIVALPROEX SODIUM 500 MG DR TABLET PO SCH ×2 (09:00→16:13)
[2021-08-08] MEDS: ChlorproMAZINE HCL 50 MG/2 ML AMP IM PRN (10:06)
[2021-08-08] MEDS: LORazepam 2 MG TABLET PO PRN ×2 (12:08→16:13)
[2021-08-08 16:06] VITALS: BP 105/69
[2021-08-09] MEDS: DIVALPROEX SODIUM 500 MG DR TABLET PO SCH ×2 (09:00→16:51)
[2021-08-09] MEDS: ASCORBIC ACID 500 MG TABLET PO SCH ×2 (09:00→16:51)
[2021-08-09] MEDS: MULTIVITAMINS WITH MINERALS, THERAPEUTIC TABLET PO SCH (09:00)
[2021-08-09] MEDS: PREGABALIN 50 MG CAPSULE PO SCH (09:00)
[2021-08-09] MEDS: FUROSEMIDE 40 MG TABLET PO SCH (09:00)
[2021-08-09] MEDS: METOPROLOL TARTRATE 50 MG TABLET PO SCH ×2 (09:00→16:51)
[2021-08-09] MEDS: ChlorproMAZINE HCL 50 MG/2 ML AMP IM PRN ×2 (09:50→16:52)
[2021-08-09] MEDS: LORazepam 2 MG TABLET PO PRN ×2 (09:56→14:49)
[2021-08-09] MEDS ORDERED: LORazepam 2 MG/ML VIAL ONE (17:32)
[2021-08-09] MEDS ORDERED: HALOPERIDOL LACTATE 5 MG/ML VIAL ONE (17:32)
[2021-08-09] MEDS ORDERED: DiphenhydrAMINE HCL 50 MG/ML VIAL ONE (17:33)
[2021-08-09] MEDS ORDERED: DiphenhydrAMINE HCL 50 MG/ML VIAL IM ONE (17:45)
[2021-08-09] MEDS ORDERED: LORazepam 2 MG/ML VIAL IM ONE (17:45)
[2021-08-09] MEDS ORDERED: HALOPERIDOL LACTATE 5 MG/ML VIAL IM ONE (17:45)
[2021-08-10] MEDS: FUROSEMIDE 40 MG TABLET PO SCH ×2 (09:00→09:47)
[2021-08-10] MEDS: METOPROLOL TARTRATE 50 MG TABLET PO SCH ×3 (09:00→17:00)
[2021-08-10] MEDS: MULTIVITAMINS WITH MINERALS, THERAPEUTIC TABLET PO SCH ×2 (09:00→09:48)
[2021-08-10] MEDS: ASCORBIC ACID 500 MG TABLET PO SCH ×3 (09:00→17:00)
[2021-08-10] MEDS: DIVALPROEX SODIUM 500 MG DR TABLET PO SCH ×3 (09:00→17:00)
[2021-08-10] MEDS: PREGABALIN 50 MG CAPSULE PO SCH ×2 (09:00→09:47)
[2021-08-10] MEDS: ChlorproMAZINE HCL 50 MG TABLET PO SCH ×3 (09:45→17:00)
[2021-08-10] MEDS: LORazepam 2 MG TABLET PO PRN ×2 (10:31→14:42)
[2021-08-10] MEDS: ChlorproMAZINE HCL 50 MG/2 ML AMP IM PRN ×2 (12:06→17:21)
[2021-08-11] MEDS: FUROSEMIDE 40 MG TABLET PO SCH (09:00)
[2021-08-11] MEDS: ASCORBIC ACID 500 MG TABLET PO SCH ×2 (09:00→16:37)
[2021-08-11] MEDS: METOPROLOL TARTRATE 50 MG TABLET PO SCH ×2 (09:00→16:37)
[2021-08-11] MEDS: ChlorproMAZINE HCL 50 MG TABLET PO SCH ×2 (09:00→16:37)
[2021-08-11] MEDS: MULTIVITAMINS WITH MINERALS, THERAPEUTIC TABLET PO SCH (09:00)
[2021-08-11] MEDS: LORazepam 2 MG TABLET PO PRN ×2 (10:21→16:37)
[2021-08-11] MEDS: PREGABALIN 50 MG CAPSULE PO SCH (10:21)
[2021-08-11] MEDS: DIVALPROEX SODIUM 500 MG DR TABLET PO SCH ×2 (10:23→16:37)
[2021-08-11 16:37] VITALS: BP 125/75
[2021-08-12] MEDS: MULTIVITAMINS WITH MINERALS, THERAPEUTIC TABLET PO SCH (09:27)
[2021-08-12] MEDS: DIVALPROEX SODIUM 500 MG DR TABLET PO SCH ×2 (09:27→16:28)
[2021-08-12] MEDS: ChlorproMAZINE HCL 50 MG TABLET PO SCH ×2 (09:27→16:28)
[2021-08-12] MEDS: FUROSEMIDE 40 MG TABLET PO SCH (09:28)
[2021-08-12] MEDS: METOPROLOL TARTRATE 50 MG TABLET PO SCH ×2 (09:28→16:28)
[2021-08-12] MEDS: PREGABALIN 50 MG CAPSULE PO SCH (09:28)
[2021-08-12] MEDS: ASCORBIC ACID 500 MG TABLET PO SCH ×2 (09:28→16:28)
[2021-08-12] MEDS: LORazepam 2 MG TABLET PO PRN (09:37)
[2021-08-13] MEDS: LORazepam 2 MG TABLET PO PRN (13:37)
[2021-08-13] MEDS: MULTIVITAMINS WITH MINERALS, THERAPEUTIC TABLET PO SCH (13:38)
[2021-08-13] MEDS: DIVALPROEX SODIUM 500 MG DR TABLET PO SCH ×2 (13:38→16:57)
[2021-08-13] MEDS: PREGABALIN 50 MG CAPSULE PO SCH (13:38)
[2021-08-13] MEDS: METOPROLOL TARTRATE 50 MG TABLET PO SCH ×2 (13:38→16:58)
[2021-08-13] MEDS: ChlorproMAZINE HCL 50 MG TABLET PO SCH ×2 (13:38→16:58)
[2021-08-13] MEDS: FUROSEMIDE 40 MG TABLET PO SCH (13:39)
[2021-08-13] MEDS: ASCORBIC ACID 500 MG TABLET PO SCH ×2 (13:39→16:58)
[2021-08-13 13:52] LABS: COVID AG,FIA SOURCE NASOPHARYNGEAL
[2021-08-14] MEDS: MULTIVITAMINS WITH MINERALS, THERAPEUTIC TABLET PO SCH (09:00)
[2021-08-14] MEDS: METOPROLOL TARTRATE 50 MG TABLET PO SCH ×2 (09:00→17:00)
[2021-08-14] MEDS: ASCORBIC ACID 500 MG TABLET PO SCH ×2 (09:00→17:00)
[2021-08-14] MEDS: FUROSEMIDE 40 MG TABLET PO SCH (09:00)
[2021-08-14] MEDS: ChlorproMAZINE HCL 50 MG TABLET PO SCH (09:00)
[2021-08-14] MEDS: PREGABALIN 50 MG CAPSULE PO SCH (11:38)
[2021-08-14] MEDS: DIVALPROEX SODIUM 500 MG DR TABLET PO SCH ×2 (11:38→17:00)
[2021-08-14] MEDS: LORazepam 2 MG TABLET PO PRN ×2 (11:39→17:56)
[2021-08-14] MEDS: ChlorproMAZINE HCL 50 MG/2 ML AMP IM PRN (19:36)
[2021-08-15] MEDS: DIVALPROEX SODIUM 500 MG DR TABLET PO SCH ×2 (09:00→17:22)
[2021-08-15] MEDS: METOPROLOL TARTRATE 50 MG TABLET PO SCH ×2 (09:00→17:22)
[2021-08-15] MEDS: MULTIVITAMINS WITH MINERALS, THERAPEUTIC TABLET PO SCH (09:00)
[2021-08-15] MEDS: PREGABALIN 50 MG CAPSULE PO SCH (09:00)
[2021-08-15] MEDS: ASCORBIC ACID 500 MG TABLET PO SCH ×2 (09:00→17:20)
[2021-08-15] MEDS: FUROSEMIDE 40 MG TABLET PO SCH (09:00)
[2021-08-15] MEDS: ChlorproMAZINE HCL 50 MG/2 ML AMP IM PRN (10:34)
[2021-08-15] MEDS: NICOTINE 14 MG/24 HOUR PATCH TD PRN (14:01)
[2021-08-15 16:16] VITALS: BP 121/67
[2021-08-15 16:19] VITALS: BP 121/67
[2021-08-15] MEDS: LORazepam 2 MG TABLET PO PRN (17:22)
[2021-08-16] MEDS: METOPROLOL TARTRATE 50 MG TABLET PO SCH ×2 (09:00→17:00)
[2021-08-16] MEDS: MULTIVITAMINS WITH MINERALS, THERAPEUTIC TABLET PO SCH (09:00)
[2021-08-16] MEDS: ASCORBIC ACID 500 MG TABLET PO SCH ×2 (09:00→17:04)
[2021-08-16] MEDS: FUROSEMIDE 40 MG TABLET PO SCH (09:00)
[2021-08-16] MEDS: LORazepam 2 MG TABLET PO PRN ×2 (10:24→17:04)
[2021-08-16] MEDS: PREGABALIN 50 MG CAPSULE PO SCH (10:24)
[2021-08-16] MEDS: DIVALPROEX SODIUM 500 MG DR TABLET PO SCH ×2 (10:24→17:04)
[2021-08-16] MEDS: NICOTINE 14 MG/24 HOUR PATCH TD PRN (12:07)
[2021-08-16] MEDS: NICOTINE 21 MG/24 HOUR PATCH TD SCH (19:43)
[2021-08-17] MEDS: MULTIVITAMINS WITH MINERALS, THERAPEUTIC TABLET PO SCH (09:00)
[2021-08-17] MEDS: METOPROLOL TARTRATE 50 MG TABLET PO SCH ×2 (09:00→17:07)
[2021-08-17] MEDS: ASCORBIC ACID 500 MG TABLET PO SCH ×2 (09:00→17:07)
[2021-08-17] MEDS: FUROSEMIDE 40 MG TABLET PO SCH (09:00)
[2021-08-17] MEDS: LORazepam 2 MG TABLET PO PRN (10:10)
[2021-08-17] MEDS: DIVALPROEX SODIUM 500 MG DR TABLET PO SCH ×2 (10:10→17:07)
[2021-08-17] MEDS: NICOTINE 21 MG/24 HOUR PATCH TD SCH (10:10)
[2021-08-17] MEDS: PREGABALIN 50 MG CAPSULE PO SCH (10:10)
[2021-08-18] MEDS: METOPROLOL TARTRATE 50 MG TABLET PO SCH ×3 (09:00→16:51)
[2021-08-18] MEDS: PREGABALIN 50 MG CAPSULE PO SCH ×2 (09:00→09:20)
[2021-08-18] MEDS: ASCORBIC ACID 500 MG TABLET PO SCH ×2 (09:00→16:23)
[2021-08-18] MEDS: NICOTINE 21 MG/24 HOUR PATCH TD SCH ×2 (09:00→09:22)
[2021-08-18] MEDS: MULTIVITAMINS WITH MINERALS, THERAPEUTIC TABLET PO SCH (09:00)
[2021-08-18] MEDS: FUROSEMIDE 40 MG TABLET PO SCH (09:00)
[2021-08-18] MEDS: DIVALPROEX SODIUM 500 MG DR TABLET PO SCH ×2 (09:21→16:23)
[2021-08-18] MEDS: LORazepam 2 MG TABLET PO PRN (16:26)
[2021-08-19] MEDS: METOPROLOL TARTRATE 50 MG TABLET PO SCH ×2 (09:00→17:00)
[2021-08-19] MEDS: NICOTINE 21 MG/24 HOUR PATCH TD SCH ×2 (09:00→10:09)
[2021-08-19] MEDS: ASCORBIC ACID 500 MG TABLET PO SCH ×2 (10:06→17:00)
[2021-08-19] MEDS: PREGABALIN 50 MG CAPSULE PO SCH (10:06)
[2021-08-19] MEDS: LORazepam 2 MG TABLET PO PRN ×2 (10:07→20:08)
[2021-08-19] MEDS: FUROSEMIDE 40 MG TABLET PO SCH (10:07)
[2021-08-19] MEDS: DIVALPROEX SODIUM 500 MG DR TABLET PO SCH ×2 (10:07→17:08)
[2021-08-19] MEDS: MULTIVITAMINS WITH MINERALS, THERAPEUTIC TABLET PO SCH (10:07)
[2021-08-19 16:36] VITALS: BP 122/82
[2021-08-20 08:01] LABS: COVID AG,FIA SOURCE NASAL SWAB
[2021-08-20] MEDS: MULTIVITAMINS WITH MINERALS, THERAPEUTIC TABLET PO SCH (09:00)
[2021-08-20] MEDS: NICOTINE 21 MG/24 HOUR PATCH TD SCH (09:00)
[2021-08-20] MEDS: ASCORBIC ACID 500 MG TABLET PO SCH ×2 (09:00→17:00)
[2021-08-20] MEDS: FUROSEMIDE 40 MG TABLET PO SCH (09:00)
[2021-08-20] MEDS: PREGABALIN 50 MG CAPSULE PO SCH (09:00)
[2021-08-20] MEDS: METOPROLOL TARTRATE 50 MG TABLET PO SCH ×2 (09:00→17:00)
[2021-08-20] MEDS: DIVALPROEX SODIUM 500 MG DR TABLET PO SCH ×2 (09:00→17:11)
[2021-08-20] MEDS: ChlorproMAZINE HCL 50 MG/2 ML AMP IM PRN (10:36)
[2021-08-20] MEDS: LORazepam 2 MG TABLET PO PRN (18:01)
[2021-08-21] MEDS: MULTIVITAMINS WITH MINERALS, THERAPEUTIC TABLET PO SCH (09:00)
[2021-08-21] MEDS: ASCORBIC ACID 500 MG TABLET PO SCH ×2 (09:00→16:58)
[2021-08-21] MEDS: NICOTINE 21 MG/24 HOUR PATCH TD SCH (09:00)
[2021-08-21] MEDS: FUROSEMIDE 40 MG TABLET PO SCH (09:00)
[2021-08-21] MEDS: PREGABALIN 50 MG CAPSULE PO SCH (09:00)
[2021-08-21] MEDS: METOPROLOL TARTRATE 50 MG TABLET PO SCH ×2 (09:00→16:58)
[2021-08-21] MEDS: DIVALPROEX SODIUM 500 MG DR TABLET PO SCH ×2 (10:17→16:58)
[2021-08-21] MEDS: LORazepam 2 MG TABLET PO PRN (11:24)
[2021-08-21 16:02] VITALS: BP 117/61
[2021-08-22] MEDS: METOPROLOL TARTRATE 50 MG TABLET PO SCH ×2 (09:00→17:00)
[2021-08-22] MEDS: NICOTINE 21 MG/24 HOUR PATCH TD SCH ×2 (09:00→10:33)
[2021-08-22] MEDS: FUROSEMIDE 40 MG TABLET PO SCH (09:00)
[2021-08-22] MEDS: ASCORBIC ACID 500 MG TABLET PO SCH ×2 (09:00→17:00)
[2021-08-22] MEDS: PREGABALIN 50 MG CAPSULE PO SCH ×2 (09:00→10:05)
[2021-08-22] MEDS: MULTIVITAMINS WITH MINERALS, THERAPEUTIC TABLET PO SCH (09:00)
[2021-08-22] MEDS: DIVALPROEX SODIUM 500 MG DR TABLET PO SCH ×2 (09:46→17:42)
[2021-08-22] MEDS: LORazepam 2 MG TABLET PO PRN ×2 (10:05→17:42)
[2021-08-22] MEDS: ZOLPIDEM TARTRATE 10 MG TABLET PO PRN (20:43)
[2021-08-23] MEDS: MULTIVITAMINS WITH MINERALS, THERAPEUTIC TABLET PO SCH (09:00)
[2021-08-23] MEDS: NICOTINE 21 MG/24 HOUR PATCH TD SCH ×2 (09:00→12:02)
[2021-08-23] MEDS: ASCORBIC ACID 500 MG TABLET PO SCH ×2 (09:00→17:00)
[2021-08-23] MEDS: METOPROLOL TARTRATE 50 MG TABLET PO SCH ×2 (09:00→17:00)
[2021-08-23] MEDS: FUROSEMIDE 40 MG TABLET PO SCH (09:00)
[2021-08-23] MEDS: PREGABALIN 50 MG CAPSULE PO SCH (09:00)
[2021-08-23] MEDS: DIVALPROEX SODIUM 500 MG DR TABLET PO SCH ×2 (09:29→17:55)
[2021-08-23] MEDS: LORazepam 2 MG TABLET PO PRN ×2 (12:01→21:00)
[2021-08-24] MEDS: METOPROLOL TARTRATE 50 MG TABLET PO SCH ×2 (09:00→16:28)
[2021-08-24] MEDS: ASCORBIC ACID 500 MG TABLET PO SCH ×2 (09:00→16:28)
[2021-08-24] MEDS: MULTIVITAMINS WITH MINERALS, THERAPEUTIC TABLET PO SCH (09:00)
[2021-08-24] MEDS: FUROSEMIDE 40 MG TABLET PO SCH (10:05)
[2021-08-24] MEDS: DIVALPROEX SODIUM 500 MG DR TABLET PO SCH ×2 (10:05→16:28)
[2021-08-24] MEDS: LORazepam 2 MG TABLET PO PRN ×2 (10:05→20:07)
[2021-08-24] MEDS: PREGABALIN 50 MG CAPSULE PO SCH (10:06)
[2021-08-24] MEDS: NICOTINE 21 MG/24 HOUR PATCH TD SCH (10:08)
[2021-08-25] MEDS: METOPROLOL TARTRATE 50 MG TABLET PO SCH ×2 (09:00→16:02)
[2021-08-25] MEDS: MULTIVITAMINS WITH MINERALS, THERAPEUTIC TABLET PO SCH (09:00)
[2021-08-25] MEDS: ASCORBIC ACID 500 MG TABLET PO SCH ×2 (09:00→16:02)
[2021-08-25] MEDS: FUROSEMIDE 40 MG TABLET PO SCH (09:00)
[2021-08-25] MEDS: DIVALPROEX SODIUM 500 MG DR TABLET PO SCH ×2 (11:06→16:02)
[2021-08-25] MEDS: PREGABALIN 50 MG CAPSULE PO SCH (11:06)
[2021-08-25] MEDS: LORazepam 2 MG TABLET PO PRN (11:07)
[2021-08-26] MEDS: FUROSEMIDE 40 MG TABLET PO SCH (09:00)
[2021-08-26] MEDS: MULTIVITAMINS WITH MINERALS, THERAPEUTIC TABLET PO SCH (09:00)
[2021-08-26] MEDS: PREGABALIN 50 MG CAPSULE PO SCH (09:00)
[2021-08-26] MEDS: METOPROLOL TARTRATE 50 MG TABLET PO SCH ×2 (09:00→17:00)
[2021-08-26] MEDS: NICOTINE 21 MG/24 HOUR PATCH TD SCH (09:00)
[2021-08-26] MEDS: ASCORBIC ACID 500 MG TABLET PO SCH ×2 (09:00→17:00)
[2021-08-26] MEDS: DIVALPROEX SODIUM 500 MG DR TABLET PO SCH ×2 (09:45→18:48)
[2021-08-26] MEDS: LORazepam 2 MG TABLET PO PRN (14:12)
[2021-08-27] MEDS: NICOTINE 21 MG/24 HOUR PATCH TD SCH (08:35)
[2021-08-27] MEDS: FUROSEMIDE 40 MG TABLET PO SCH (08:35)
[2021-08-27] MEDS: DIVALPROEX SODIUM 500 MG DR TABLET PO SCH ×2 (08:35→17:23)
[2021-08-27] MEDS: MULTIVITAMINS WITH MINERALS, THERAPEUTIC TABLET PO SCH (08:35)
[2021-08-27] MEDS: METOPROLOL TARTRATE 50 MG TABLET PO SCH ×2 (08:35→17:00)
[2021-08-27] MEDS: ASCORBIC ACID 500 MG TABLET PO SCH ×2 (08:35→17:00)
[2021-08-27] MEDS: PREGABALIN 50 MG CAPSULE PO SCH (08:35)
[2021-08-27] MEDS: LORazepam 2 MG TABLET PO PRN ×2 (09:43→18:50)
[2021-08-27 13:57] LABS: COVID AG,FIA SOURCE NASOPHARYNGEAL
[2021-08-28] MEDS: METOPROLOL TARTRATE 50 MG TABLET PO SCH ×2 (09:00→17:00)
[2021-08-28] MEDS: ASCORBIC ACID 500 MG TABLET PO SCH ×2 (09:00→17:00)
[2021-08-28] MEDS: MULTIVITAMINS WITH MINERALS, THERAPEUTIC TABLET PO SCH (09:00)
[2021-08-28] MEDS: FUROSEMIDE 40 MG TABLET PO SCH (09:00)
[2021-08-28] MEDS: DIVALPROEX SODIUM 500 MG DR TABLET PO SCH ×2 (09:47→17:08)
[2021-08-28] MEDS: PREGABALIN 50 MG CAPSULE PO SCH (09:48)
[2021-08-28] MEDS: LORazepam 2 MG TABLET PO PRN ×3 (09:49→16:45)
[2021-08-28] MEDS: NICOTINE 21 MG/24 HOUR PATCH TD SCH (10:33)
[2021-08-28 17:09] VITALS: BP 146/76
[2021-08-29] MEDS: ASCORBIC ACID 500 MG TABLET PO SCH ×2 (09:00→17:00)
[2021-08-29] MEDS: FUROSEMIDE 40 MG TABLET PO SCH (09:00)
[2021-08-29] MEDS: METOPROLOL TARTRATE 50 MG TABLET PO SCH ×2 (09:00→17:00)
[2021-08-29] MEDS: MULTIVITAMINS WITH MINERALS, THERAPEUTIC TABLET PO SCH (09:00)
[2021-08-29] MEDS: DIVALPROEX SODIUM 500 MG DR TABLET PO SCH ×2 (11:40→16:59)
[2021-08-29] MEDS: PREGABALIN 50 MG CAPSULE PO SCH (11:40)
[2021-08-29] MEDS: LORazepam 2 MG TABLET PO PRN (11:41)
[2021-08-29] MEDS: NICOTINE 21 MG/24 HOUR PATCH TD SCH (12:00)
[2021-08-29] MEDS: ZOLPIDEM TARTRATE 10 MG TABLET PO PRN (21:14)
[2021-08-30] MEDS: DIVALPROEX SODIUM 500 MG DR TABLET PO SCH ×2 (08:38→17:21)
[2021-08-30] MEDS: PREGABALIN 50 MG CAPSULE PO SCH (09:00)
[2021-08-30] MEDS: METOPROLOL TARTRATE 50 MG TABLET PO SCH ×2 (09:00→17:00)
[2021-08-30] MEDS: ASCORBIC ACID 500 MG TABLET PO SCH ×2 (09:00→17:00)
[2021-08-30] MEDS: FUROSEMIDE 40 MG TABLET PO SCH (09:00)
[2021-08-30] MEDS: MULTIVITAMINS WITH MINERALS, THERAPEUTIC TABLET PO SCH (09:00)
[2021-08-30] MEDS: NICOTINE 21 MG/24 HOUR PATCH TD SCH (09:00)
[2021-08-30] MEDS: LORazepam 2 MG TABLET PO PRN (16:44)
[2021-08-31] MEDS: DIVALPROEX SODIUM 500 MG DR TABLET PO SCH ×2 (08:16→16:44)
[2021-08-31] MEDS: PREGABALIN 50 MG CAPSULE PO SCH (08:17)
[2021-08-31] MEDS: FUROSEMIDE 40 MG TABLET PO SCH (08:17)
[2021-08-31] MEDS: METOPROLOL TARTRATE 50 MG TABLET PO SCH ×2 (08:17→16:44)
[2021-08-31] MEDS: NICOTINE 21 MG/24 HOUR PATCH TD SCH (08:19)
[2021-08-31] MEDS: ASCORBIC ACID 500 MG TABLET PO SCH ×2 (08:19→16:44)
[2021-08-31] MEDS: MULTIVITAMINS WITH MINERALS, THERAPEUTIC TABLET PO SCH (08:19)
[2021-08-31] MEDS: LORazepam 2 MG TABLET PO PRN ×2 (11:54→20:13)
[2021-09-01] MEDS: DIVALPROEX SODIUM 500 MG DR TABLET PO SCH ×2 (08:40→17:04)
[2021-09-01] MEDS: PREGABALIN 50 MG CAPSULE PO SCH (08:40)
[2021-09-01] MEDS: NICOTINE 21 MG/24 HOUR PATCH TD SCH (08:40)
[2021-09-01] MEDS: ASCORBIC ACID 500 MG TABLET PO SCH ×2 (08:40→17:00)
[2021-09-01] MEDS: FUROSEMIDE 40 MG TABLET PO SCH (08:40)
[2021-09-01] MEDS: MULTIVITAMINS WITH MINERALS, THERAPEUTIC TABLET PO SCH (08:40)
[2021-09-01] MEDS: METOPROLOL TARTRATE 50 MG TABLET PO SCH ×2 (08:40→17:00)
[2021-09-01] MEDS: LORazepam 2 MG TABLET PO PRN ×2 (12:02→17:24)
[2021-09-02] MEDS: ASCORBIC ACID 500 MG TABLET PO SCH ×2 (09:00→16:33)
[2021-09-02] MEDS: MULTIVITAMINS WITH MINERALS, THERAPEUTIC TABLET PO SCH (09:00)
[2021-09-02] MEDS: FUROSEMIDE 40 MG TABLET PO SCH (09:00)
[2021-09-02] MEDS: METOPROLOL TARTRATE 50 MG TABLET PO SCH ×2 (09:00→16:32)
[2021-09-02] MEDS: DIVALPROEX SODIUM 500 MG DR TABLET PO SCH ×2 (11:49→16:32)
[2021-09-02] MEDS: PREGABALIN 50 MG CAPSULE PO SCH (11:49)
[2021-09-02] MEDS: LORazepam 2 MG TABLET PO PRN (11:49)
[2021-09-02] MEDS: NICOTINE 21 MG/24 HOUR PATCH TD SCH (11:57)
[2021-09-02] MEDS: ACETAMINOPHEN 325 MG TABLET PO PRN (22:02)
[2021-09-03] MEDS: DIVALPROEX SODIUM 500 MG DR TABLET PO SCH ×2 (09:00→16:33)
[2021-09-03] MEDS: METOPROLOL TARTRATE 50 MG TABLET PO SCH ×2 (09:00→16:34)
[2021-09-03] MEDS: MULTIVITAMINS WITH MINERALS, THERAPEUTIC TABLET PO SCH (09:00)
[2021-09-03] MEDS: ASCORBIC ACID 500 MG TABLET PO SCH ×2 (09:00→16:34)
[2021-09-03] MEDS: FUROSEMIDE 40 MG TABLET PO SCH (09:00)
[2021-09-03] MEDS: PREGABALIN 50 MG CAPSULE PO SCH (09:00)
[2021-09-03] MEDS: NICOTINE 21 MG/24 HOUR PATCH TD SCH (09:00)
[2021-09-03] MEDS: LORazepam 2 MG TABLET PO PRN ×2 (12:35→19:15)
[2021-09-04] MEDS: ASCORBIC ACID 500 MG TABLET PO SCH ×2 (09:00→17:00)
[2021-09-04] MEDS: MULTIVITAMINS WITH MINERALS, THERAPEUTIC TABLET PO SCH (09:00)
[2021-09-04] MEDS: NICOTINE 21 MG/24 HOUR PATCH TD SCH (09:00)
[2021-09-04] MEDS: DIVALPROEX SODIUM 500 MG DR TABLET PO SCH ×2 (09:00→17:36)
[2021-09-04] MEDS: FUROSEMIDE 40 MG TABLET PO SCH (09:00)
[2021-09-04] MEDS: METOPROLOL TARTRATE 50 MG TABLET PO SCH ×2 (09:00→17:00)
[2021-09-04] MEDS: PREGABALIN 50 MG CAPSULE PO SCH (09:00)
[2021-09-04] MEDS: LORazepam 2 MG TABLET PO PRN (13:26)
[2021-09-04] MEDS: ZOLPIDEM TARTRATE 10 MG TABLET PO PRN (20:59)
[2021-09-05] MEDS: NICOTINE 21 MG/24 HOUR PATCH TD SCH (08:32)
[2021-09-05] MEDS: PREGABALIN 50 MG CAPSULE PO SCH (08:32)
[2021-09-05] MEDS: DIVALPROEX SODIUM 500 MG DR TABLET PO SCH ×2 (08:32→16:21)
[2021-09-05] MEDS: FUROSEMIDE 40 MG TABLET PO SCH (08:39)
[2021-09-05] MEDS: MULTIVITAMINS WITH MINERALS, THERAPEUTIC TABLET PO SCH (08:39)
[2021-09-05] MEDS: METOPROLOL TARTRATE 50 MG TABLET PO SCH ×2 (08:39→17:00)
[2021-09-05] MEDS: ASCORBIC ACID 500 MG TABLET PO SCH ×2 (08:40→17:00)
[2021-09-05] MEDS: LORazepam 2 MG TABLET PO PRN (19:33)
[2021-09-05 19:57] LABS: COVID AG,FIA SOURCE NASOPHARYNGEAL
[2021-09-06] MEDS: DIVALPROEX SODIUM 500 MG DR TABLET PO SCH ×2 (08:14→16:08)
[2021-09-06] MEDS: PREGABALIN 50 MG CAPSULE PO SCH (08:14)
[2021-09-06] MEDS: NICOTINE 21 MG/24 HOUR PATCH TD SCH (08:15)
[2021-09-06] MEDS: METOPROLOL TARTRATE 50 MG TABLET PO SCH ×2 (08:16→16:08)
[2021-09-06] MEDS: ASCORBIC ACID 500 MG TABLET PO SCH ×2 (08:16→16:08)
[2021-09-06] MEDS: MULTIVITAMINS WITH MINERALS, THERAPEUTIC TABLET PO SCH (08:16)
[2021-09-06] MEDS: FUROSEMIDE 40 MG TABLET PO SCH (08:16)
[2021-09-06] MEDS: ARIPiprazole LAUROXIL ER SUSPENSION 882 MG/3.2 ML SYRINGE IM SCH (09:11)
[2021-09-06] MEDS: LORazepam 2 MG TABLET PO PRN (16:25)
[2021-09-06 16:29] VITALS: BP 147/88
[2021-09-06] MEDS: ZOLPIDEM TARTRATE 10 MG TABLET PO PRN (22:14)
[2021-09-07] MEDS: FUROSEMIDE 40 MG TABLET PO SCH (08:13)
[2021-09-07] MEDS: PREGABALIN 50 MG CAPSULE PO SCH ×2 (08:13→09:00)
[2021-09-07] MEDS: DIVALPROEX SODIUM 500 MG DR TABLET PO SCH ×2 (08:13→16:40)
[2021-09-07] MEDS: METOPROLOL TARTRATE 50 MG TABLET PO SCH ×2 (08:13→16:40)
[2021-09-07] MEDS: NICOTINE 21 MG/24 HOUR PATCH TD SCH (08:13)
[2021-09-07] MEDS: MULTIVITAMINS WITH MINERALS, THERAPEUTIC TABLET PO SCH (08:13)
[2021-09-07] MEDS: ASCORBIC ACID 500 MG TABLET PO SCH ×2 (08:14→16:40)
[2021-09-07] MEDS: ZOLPIDEM TARTRATE 10 MG TABLET PO PRN (21:30)
[2021-09-08] MEDS: ASCORBIC ACID 500 MG TABLET PO SCH ×2 (09:00→16:51)
[2021-09-08] MEDS: FUROSEMIDE 40 MG TABLET PO SCH (09:00)
[2021-09-08] MEDS: NICOTINE 21 MG/24 HOUR PATCH TD SCH (09:00)
[2021-09-08] MEDS: METOPROLOL TARTRATE 50 MG TABLET PO SCH ×2 (09:00→16:51)
[2021-09-08] MEDS: PREGABALIN 50 MG CAPSULE PO SCH (09:00)
[2021-09-08] MEDS: MULTIVITAMINS WITH MINERALS, THERAPEUTIC TABLET PO SCH (09:00)
[2021-09-08] MEDS: DIVALPROEX SODIUM 500 MG DR TABLET PO SCH ×2 (09:00→16:02)
[2021-09-08] MEDS: LORazepam 2 MG TABLET PO PRN ×2 (11:33→20:30)
[2021-09-09] MEDS: ASCORBIC ACID 500 MG TABLET PO SCH ×2 (09:27→17:00)
[2021-09-09] MEDS: DIVALPROEX SODIUM 500 MG DR TABLET PO SCH ×2 (09:27→16:37)
[2021-09-09] MEDS: MULTIVITAMINS WITH MINERALS, THERAPEUTIC TABLET PO SCH (09:29)
[2021-09-09] MEDS: PREGABALIN 50 MG CAPSULE PO SCH (09:29)
[2021-09-09] MEDS: NICOTINE 21 MG/24 HOUR PATCH TD SCH (09:31)
[2021-09-09] MEDS: FUROSEMIDE 40 MG TABLET PO SCH (09:36)
[2021-09-09] MEDS: METOPROLOL TARTRATE 50 MG TABLET PO SCH ×2 (09:36→17:00)
[2021-09-09] MEDS: LORazepam 2 MG TABLET PO PRN (20:30)
[2021-09-09 21:02] VITALS: BP 126/75
[2021-09-09] MEDS: ZOLPIDEM TARTRATE 10 MG TABLET PO PRN (21:35)
[2021-09-10] MEDS: DIVALPROEX SODIUM 500 MG DR TABLET PO SCH ×2 (08:41→17:14)
[2021-09-10] MEDS: ASCORBIC ACID 500 MG TABLET PO SCH ×2 (08:46→17:00)
[2021-09-10] MEDS: NICOTINE 21 MG/24 HOUR PATCH TD SCH (08:46)
[2021-09-10] MEDS: PREGABALIN 50 MG CAPSULE PO SCH (08:47)
[2021-09-10] MEDS: METOPROLOL TARTRATE 50 MG TABLET PO SCH ×2 (08:47→17:00)
[2021-09-10] MEDS: FUROSEMIDE 40 MG TABLET PO SCH (08:47)
[2021-09-10] MEDS: MULTIVITAMINS WITH MINERALS, THERAPEUTIC TABLET PO SCH (08:47)
[2021-09-10] MEDS: ZOLPIDEM TARTRATE 10 MG TABLET PO PRN (20:48)
[2021-09-11] MEDS: MULTIVITAMINS WITH MINERALS, THERAPEUTIC TABLET PO SCH (09:00)
[2021-09-11] MEDS: PREGABALIN 50 MG CAPSULE PO SCH (09:00)
[2021-09-11] MEDS: FUROSEMIDE 40 MG TABLET PO SCH (09:00)
[2021-09-11] MEDS: NICOTINE 21 MG/24 HOUR PATCH TD SCH (09:00)
[2021-09-11] MEDS: METOPROLOL TARTRATE 50 MG TABLET PO SCH ×2 (09:00→16:25)
[2021-09-11] MEDS: ASCORBIC ACID 500 MG TABLET PO SCH ×2 (09:00→16:26)
[2021-09-11] MEDS: DIVALPROEX SODIUM 500 MG DR TABLET PO SCH ×2 (09:00→16:23)
[2021-09-11] MEDS: ZOLPIDEM TARTRATE 10 MG TABLET PO PRN (21:09)
[2021-09-11 23:47] LABS: COVID AG,FIA SOURCE NASAL SWAB
[2021-09-12] MEDS: DIVALPROEX SODIUM 500 MG DR TABLET PO SCH ×2 (09:00→16:52)
[2021-09-12] MEDS: MULTIVITAMINS WITH MINERALS, THERAPEUTIC TABLET PO SCH (09:00)
[2021-09-12] MEDS: NICOTINE 21 MG/24 HOUR PATCH TD SCH (09:00)
[2021-09-12] MEDS: METOPROLOL TARTRATE 50 MG TABLET PO SCH ×2 (09:00→17:00)
[2021-09-12] MEDS: ASCORBIC ACID 500 MG TABLET PO SCH ×2 (09:00→17:00)
[2021-09-12] MEDS: FUROSEMIDE 40 MG TABLET PO SCH (09:00)
[2021-09-12] MEDS: PREGABALIN 50 MG CAPSULE PO SCH (11:18)
[2021-09-13] MEDS: DIVALPROEX SODIUM 500 MG DR TABLET PO SCH ×2 (08:55→16:56)
[2021-09-13] MEDS: NICOTINE 21 MG/24 HOUR PATCH TD SCH (09:00)
[2021-09-13] MEDS: ASCORBIC ACID 500 MG TABLET PO SCH ×2 (09:00→16:57)
[2021-09-13] MEDS: FUROSEMIDE 40 MG TABLET PO SCH (09:00)
[2021-09-13] MEDS: METOPROLOL TARTRATE 50 MG TABLET PO SCH ×2 (09:00→16:57)
[2021-09-13] MEDS: PREGABALIN 50 MG CAPSULE PO SCH (09:00)
[2021-09-13] MEDS: MULTIVITAMINS WITH MINERALS, THERAPEUTIC TABLET PO SCH (09:00)
[2021-09-13] MEDS: ACETAMINOPHEN 325 MG TABLET PO PRN (22:36)
[2021-09-14 08:00] VITALS: BP 152/87
[2021-09-14] MEDS: DIVALPROEX SODIUM 500 MG DR TABLET PO SCH ×2 (08:55→16:52)
[2021-09-14] MEDS: MULTIVITAMINS WITH MINERALS, THERAPEUTIC TABLET PO SCH (08:56)
[2021-09-14] MEDS: METOPROLOL TARTRATE 50 MG TABLET PO SCH ×2 (08:56→16:53)
[2021-09-14] MEDS: NICOTINE 21 MG/24 HOUR PATCH TD SCH (08:56)
[2021-09-14] MEDS: PREGABALIN 50 MG CAPSULE PO SCH (08:56)
[2021-09-14] MEDS: FUROSEMIDE 40 MG TABLET PO SCH (08:56)
[2021-09-14] MEDS: ASCORBIC ACID 500 MG TABLET PO SCH ×2 (08:57→16:53)
[2021-09-15] MEDS: DIVALPROEX SODIUM 500 MG DR TABLET PO SCH ×2 (08:25→17:08)
[2021-09-15] MEDS: ASCORBIC ACID 500 MG TABLET PO SCH ×2 (09:00→17:00)
[2021-09-15] MEDS: MULTIVITAMINS WITH MINERALS, THERAPEUTIC TABLET PO SCH (09:00)
[2021-09-15] MEDS: FUROSEMIDE 40 MG TABLET PO SCH (09:00)
[2021-09-15] MEDS: PREGABALIN 50 MG CAPSULE PO SCH (09:00)
[2021-09-15] MEDS: NICOTINE 21 MG/24 HOUR PATCH TD SCH (09:00)
[2021-09-15] MEDS: METOPROLOL TARTRATE 50 MG TABLET PO SCH ×2 (09:00→17:00)
[2021-09-16] MEDS: PREGABALIN 50 MG CAPSULE PO SCH ×2 (09:00→09:13)
[2021-09-16] MEDS: NICOTINE 21 MG/24 HOUR PATCH TD SCH (09:00)
[2021-09-16] MEDS: ASCORBIC ACID 500 MG TABLET PO SCH ×2 (09:00→16:23)
[2021-09-16] MEDS: MULTIVITAMINS WITH MINERALS, THERAPEUTIC TABLET PO SCH (09:00)
[2021-09-16] MEDS: METOPROLOL TARTRATE 50 MG TABLET PO SCH ×2 (09:00→16:23)
[2021-09-16] MEDS: FUROSEMIDE 40 MG TABLET PO SCH (09:00)
[2021-09-16] MEDS: DIVALPROEX SODIUM 500 MG DR TABLET PO SCH ×2 (09:13→16:10)
[2021-09-16] MEDS: LORazepam 2 MG TABLET PO PRN (21:07)
[2021-09-17] MEDS: METOPROLOL TARTRATE 50 MG TABLET PO SCH ×2 (09:00→17:00)
[2021-09-17] MEDS: DIVALPROEX SODIUM 500 MG DR TABLET PO SCH ×2 (09:00→16:12)
[2021-09-17] MEDS: ASCORBIC ACID 500 MG TABLET PO SCH ×2 (09:00→17:00)
[2021-09-17] MEDS: FUROSEMIDE 40 MG TABLET PO SCH (09:00)
[2021-09-17] MEDS: MULTIVITAMINS WITH MINERALS, THERAPEUTIC TABLET PO SCH (09:00)
[2021-09-17] MEDS: PREGABALIN 50 MG CAPSULE PO SCH (09:00)
[2021-09-17] MEDS: NICOTINE 21 MG/24 HOUR PATCH TD SCH (09:00)
[2021-09-18] MEDS: DIVALPROEX SODIUM 500 MG DR TABLET PO SCH ×2 (08:15→16:03)
[2021-09-18] MEDS: FUROSEMIDE 40 MG TABLET PO SCH (08:47)
[2021-09-18] MEDS: NICOTINE 21 MG/24 HOUR PATCH TD SCH (08:48)
[2021-09-18] MEDS: PREGABALIN 50 MG CAPSULE PO SCH (08:48)
[2021-09-18] MEDS: METOPROLOL TARTRATE 50 MG TABLET PO SCH ×2 (08:48→16:41)
[2021-09-18] MEDS: MULTIVITAMINS WITH MINERALS, THERAPEUTIC TABLET PO SCH (08:48)
[2021-09-18] MEDS: ASCORBIC ACID 500 MG TABLET PO SCH ×2 (08:48→16:41)
[2021-09-19] MEDS: DIVALPROEX SODIUM 500 MG DR TABLET PO SCH ×2 (08:22→16:11)
[2021-09-19] MEDS: ASCORBIC ACID 500 MG TABLET PO SCH ×2 (08:23→17:00)
[2021-09-19] MEDS: MULTIVITAMINS WITH MINERALS, THERAPEUTIC TABLET PO SCH (08:23)
[2021-09-19] MEDS: METOPROLOL TARTRATE 50 MG TABLET PO SCH ×2 (08:23→17:00)
[2021-09-19] MEDS: PREGABALIN 50 MG CAPSULE PO SCH (08:23)
[2021-09-19] MEDS: FUROSEMIDE 40 MG TABLET PO SCH (08:23)
[2021-09-19] MEDS: NICOTINE 21 MG/24 HOUR PATCH TD SCH (08:23)
[2021-09-20] MEDS: METOPROLOL TARTRATE 50 MG TABLET PO SCH ×2 (09:00→17:00)
[2021-09-20] MEDS: MULTIVITAMINS WITH MINERALS, THERAPEUTIC TABLET PO SCH (09:00)
[2021-09-20] MEDS: ASCORBIC ACID 500 MG TABLET PO SCH ×2 (09:00→17:00)
[2021-09-20] MEDS: FUROSEMIDE 40 MG TABLET PO SCH (09:00)
[2021-09-20] MEDS: NICOTINE 21 MG/24 HOUR PATCH TD SCH (09:00)
[2021-09-20] MEDS: PREGABALIN 50 MG CAPSULE PO SCH (09:00)
[2021-09-20] MEDS: DIVALPROEX SODIUM 500 MG DR TABLET PO SCH ×2 (10:15→17:09)
[2021-09-21] MEDS: FUROSEMIDE 40 MG TABLET PO SCH (09:00)
[2021-09-21] MEDS: METOPROLOL TARTRATE 50 MG TABLET PO SCH ×2 (09:00→17:00)
[2021-09-21] MEDS: ASCORBIC ACID 500 MG TABLET PO SCH ×2 (09:00→17:00)
[2021-09-21] MEDS: PREGABALIN 50 MG CAPSULE PO SCH (09:00)
[2021-09-21] MEDS: MULTIVITAMINS WITH MINERALS, THERAPEUTIC TABLET PO SCH (09:00)
[2021-09-21] MEDS: NICOTINE 21 MG/24 HOUR PATCH TD SCH (09:00)
[2021-09-21] MEDS: DIVALPROEX SODIUM 500 MG DR TABLET PO SCH ×2 (09:01→16:33)
[2021-09-22] MEDS: DIVALPROEX SODIUM 500 MG DR TABLET PO SCH ×2 (08:05→16:24)
[2021-09-22] MEDS: METOPROLOL TARTRATE 50 MG TABLET PO SCH ×2 (08:05→16:56)
[2021-09-22] MEDS: MULTIVITAMINS WITH MINERALS, THERAPEUTIC TABLET PO SCH (08:05)
[2021-09-22] MEDS: PREGABALIN 50 MG CAPSULE PO SCH (08:05)
[2021-09-22] MEDS: FUROSEMIDE 40 MG TABLET PO SCH (08:05)
[2021-09-22] MEDS: ASCORBIC ACID 500 MG TABLET PO SCH ×2 (08:05→16:56)
[2021-09-22] MEDS: NICOTINE 21 MG/24 HOUR PATCH TD SCH (08:05)
[2021-09-22 13:45] LABS: COVID AG,FIA SOURCE NASOPHARYNGEAL
[2021-09-23] MEDS: DIVALPROEX SODIUM 500 MG DR TABLET PO SCH ×3 (08:02→17:00)
[2021-09-23] MEDS: METOPROLOL TARTRATE 50 MG TABLET PO SCH ×2 (09:00→17:00)
[2021-09-23] MEDS: PREGABALIN 50 MG CAPSULE PO SCH (09:00)
[2021-09-23] MEDS: MULTIVITAMINS WITH MINERALS, THERAPEUTIC TABLET PO SCH (09:00)
[2021-09-23] MEDS: ASCORBIC ACID 500 MG TABLET PO SCH ×2 (09:00→17:00)
[2021-09-23] MEDS: NICOTINE 21 MG/24 HOUR PATCH TD SCH (09:00)
[2021-09-23] MEDS: FUROSEMIDE 40 MG TABLET PO SCH (09:00)
[2021-09-23] MEDS: ChlorproMAZINE HCL 50 MG/2 ML AMP IM PRN ×2 (09:12→18:48)
[2021-09-24] MEDS: DIVALPROEX SODIUM 500 MG DR TABLET PO SCH ×3 (08:23→16:56)
[2021-09-24] MEDS: FUROSEMIDE 40 MG TABLET PO SCH (08:36)
[2021-09-24] MEDS: PREGABALIN 50 MG CAPSULE PO SCH (08:36)
[2021-09-24] MEDS: NICOTINE 21 MG/24 HOUR PATCH TD SCH (08:36)
[2021-09-24] MEDS: ASCORBIC ACID 500 MG TABLET PO SCH ×2 (08:36→16:56)
[2021-09-24] MEDS: METOPROLOL TARTRATE 50 MG TABLET PO SCH ×2 (08:36→16:56)
[2021-09-24] MEDS: MULTIVITAMINS WITH MINERALS, THERAPEUTIC TABLET PO SCH (08:36)
[2021-09-24] MEDS: ChlorproMAZINE HCL 50 MG/2 ML AMP IM PRN ×2 (09:47→16:50)
[2021-09-25] MEDS: PREGABALIN 50 MG CAPSULE PO SCH (09:00)
[2021-09-25] MEDS: FUROSEMIDE 40 MG TABLET PO SCH (09:00)
[2021-09-25] MEDS: ASCORBIC ACID 500 MG TABLET PO SCH ×2 (09:00→17:00)
[2021-09-25] MEDS: METOPROLOL TARTRATE 50 MG TABLET PO SCH ×2 (09:00→17:00)
[2021-09-25] MEDS: DIVALPROEX SODIUM 500 MG DR TABLET PO SCH ×2 (09:00→17:00)
[2021-09-25] MEDS: NICOTINE 21 MG/24 HOUR PATCH TD SCH (09:00)
[2021-09-25] MEDS: MULTIVITAMINS WITH MINERALS, THERAPEUTIC TABLET PO SCH (09:00)
[2021-09-26] MEDS: MULTIVITAMINS WITH MINERALS, THERAPEUTIC TABLET PO SCH (09:00)
[2021-09-26] MEDS: ASCORBIC ACID 500 MG TABLET PO SCH ×2 (09:00→17:00)
[2021-09-26] MEDS: PREGABALIN 50 MG CAPSULE PO SCH (09:00)
[2021-09-26] MEDS: METOPROLOL TARTRATE 50 MG TABLET PO SCH ×2 (09:00→17:00)
[2021-09-26] MEDS: NICOTINE 21 MG/24 HOUR PATCH TD SCH (09:00)
[2021-09-26] MEDS: FUROSEMIDE 40 MG TABLET PO SCH (09:00)
[2021-09-26] MEDS: DIVALPROEX SODIUM 500 MG DR TABLET PO SCH ×2 (09:42→17:13)
[2021-09-26 16:05] VITALS: BP 117/72
[2021-09-27] MEDS: METOPROLOL TARTRATE 50 MG TABLET PO SCH ×2 (08:59→17:00)
[2021-09-27] MEDS: DIVALPROEX SODIUM 500 MG DR TABLET PO SCH ×2 (08:59→16:19)
[2021-09-27] MEDS: FUROSEMIDE 40 MG TABLET PO SCH (08:59)
[2021-09-27] MEDS: PREGABALIN 50 MG CAPSULE PO SCH (08:59)
[2021-09-27] MEDS: MULTIVITAMINS WITH MINERALS, THERAPEUTIC TABLET PO SCH (08:59)
[2021-09-27] MEDS: NICOTINE 21 MG/24 HOUR PATCH TD SCH (08:59)
[2021-09-27] MEDS: ASCORBIC ACID 500 MG TABLET PO SCH ×2 (08:59→17:00)
[2021-09-28] MEDS: DIVALPROEX SODIUM 500 MG DR TABLET PO SCH ×2 (08:12→17:11)
[2021-09-28] MEDS: NICOTINE 21 MG/24 HOUR PATCH TD SCH (09:00)
[2021-09-28] MEDS: METOPROLOL TARTRATE 50 MG TABLET PO SCH ×2 (09:00→17:00)
[2021-09-28] MEDS: ASCORBIC ACID 500 MG TABLET PO SCH ×2 (09:00→17:00)
[2021-09-28] MEDS: FUROSEMIDE 40 MG TABLET PO SCH (09:00)
[2021-09-28] MEDS: MULTIVITAMINS WITH MINERALS, THERAPEUTIC TABLET PO SCH (09:00)
[2021-09-28] MEDS: PREGABALIN 50 MG CAPSULE PO SCH (09:00)
[2021-09-29 08:04] VITALS: BP 115/70
[2021-09-29] MEDS: PREGABALIN 50 MG CAPSULE PO SCH (09:00)
[2021-09-29] MEDS: NICOTINE 21 MG/24 HOUR PATCH TD SCH (09:00)
[2021-09-29] MEDS: MULTIVITAMINS WITH MINERALS, THERAPEUTIC TABLET PO SCH (09:00)
[2021-09-29] MEDS: FUROSEMIDE 40 MG TABLET PO SCH (09:00)
[2021-09-29] MEDS: ASCORBIC ACID 500 MG TABLET PO SCH ×2 (09:00→17:00)
[2021-09-29] MEDS: METOPROLOL TARTRATE 50 MG TABLET PO SCH ×2 (09:00→17:00)
[2021-09-29] MEDS: DIVALPROEX SODIUM 500 MG DR TABLET PO SCH ×2 (10:29→17:25)
[2021-09-30] MEDS: DIVALPROEX SODIUM 500 MG DR TABLET PO SCH ×2 (08:44→17:10)
[2021-09-30] MEDS: FUROSEMIDE 40 MG TABLET PO SCH (09:00)
[2021-09-30] MEDS: MULTIVITAMINS WITH MINERALS, THERAPEUTIC TABLET PO SCH (09:00)
[2021-09-30] MEDS: NICOTINE 21 MG/24 HOUR PATCH TD SCH (09:00)
[2021-09-30] MEDS: METOPROLOL TARTRATE 50 MG TABLET PO SCH ×2 (09:00→17:00)
[2021-09-30] MEDS: PREGABALIN 50 MG CAPSULE PO SCH (09:00)
[2021-09-30] MEDS: ASCORBIC ACID 500 MG TABLET PO SCH ×2 (09:00→17:00)
[2021-10-01] MEDS: DIVALPROEX SODIUM 500 MG DR TABLET PO SCH ×2 (08:55→16:58)
[2021-10-01] MEDS: ASCORBIC ACID 500 MG TABLET PO SCH ×2 (09:00→16:58)
[2021-10-01] MEDS: METOPROLOL TARTRATE 50 MG TABLET PO SCH ×2 (09:00→16:58)
[2021-10-01] MEDS: FUROSEMIDE 40 MG TABLET PO SCH (09:00)
[2021-10-01] MEDS: NICOTINE 21 MG/24 HOUR PATCH TD SCH (09:00)
[2021-10-01] MEDS: PREGABALIN 50 MG CAPSULE PO SCH (09:00)
[2021-10-01] MEDS: MULTIVITAMINS WITH MINERALS, THERAPEUTIC TABLET PO SCH (09:00)
[2021-10-02] MEDS: DIVALPROEX SODIUM 500 MG DR TABLET PO SCH ×2 (08:14→16:31)
[2021-10-02] MEDS: METOPROLOL TARTRATE 50 MG TABLET PO SCH ×2 (08:22→16:32)
[2021-10-02] MEDS: NICOTINE 21 MG/24 HOUR PATCH TD SCH (08:22)
[2021-10-02] MEDS: PREGABALIN 50 MG CAPSULE PO SCH (08:22)
[2021-10-02] MEDS: FUROSEMIDE 40 MG TABLET PO SCH (08:22)
[2021-10-02] MEDS: ASCORBIC ACID 500 MG TABLET PO SCH ×2 (08:22→16:32)
[2021-10-02] MEDS: MULTIVITAMINS WITH MINERALS, THERAPEUTIC TABLET PO SCH (08:22)
[2021-10-02 21:27] LABS: COVID AG,FIA SOURCE NASAL SWAB
[2021-10-03] MEDS: DIVALPROEX SODIUM 500 MG DR TABLET PO SCH ×2 (08:17→16:09)
[2021-10-03] MEDS: PREGABALIN 50 MG CAPSULE PO SCH (08:18)
[2021-10-03] MEDS: FUROSEMIDE 40 MG TABLET PO SCH (08:18)
[2021-10-03] MEDS: NICOTINE 21 MG/24 HOUR PATCH TD SCH (08:18)
[2021-10-03] MEDS: METOPROLOL TARTRATE 50 MG TABLET PO SCH ×2 (08:18→17:00)
[2021-10-03] MEDS: MULTIVITAMINS WITH MINERALS, THERAPEUTIC TABLET PO SCH (08:18)
[2021-10-03] MEDS: ASCORBIC ACID 500 MG TABLET PO SCH ×2 (08:18→17:00)
[2021-10-04] MEDS: FUROSEMIDE 40 MG TABLET PO SCH (09:00)
[2021-10-04] MEDS: PREGABALIN 50 MG CAPSULE PO SCH (09:00)
[2021-10-04] MEDS: NICOTINE 21 MG/24 HOUR PATCH TD SCH (09:00)
[2021-10-04] MEDS: METOPROLOL TARTRATE 50 MG TABLET PO SCH ×2 (09:00→17:00)
[2021-10-04] MEDS: ASCORBIC ACID 500 MG TABLET PO SCH ×2 (09:00→17:00)
[2021-10-04] MEDS: MULTIVITAMINS WITH MINERALS, THERAPEUTIC TABLET PO SCH (09:00)
[2021-10-04] MEDS: DIVALPROEX SODIUM 500 MG DR TABLET PO SCH ×2 (09:48→17:00)
[2021-10-04] MEDS: ChlorproMAZINE HCL 50 MG/2 ML AMP IM PRN (17:24)
[2021-10-05 05:12] LABS: COVID AG,FIA SOURCE NASAL SWAB
[2021-10-05] MEDS: METOPROLOL TARTRATE 50 MG TABLET PO SCH ×2 (09:00→17:00)
[2021-10-05] MEDS: DIVALPROEX SODIUM 500 MG DR TABLET PO SCH ×2 (09:00→17:00)
[2021-10-05] MEDS: PREGABALIN 50 MG CAPSULE PO SCH (09:00)
[2021-10-05] MEDS: MULTIVITAMINS WITH MINERALS, THERAPEUTIC TABLET PO SCH (09:00)
[2021-10-05] MEDS: NICOTINE 21 MG/24 HOUR PATCH TD SCH (09:00)
[2021-10-05] MEDS: ASCORBIC ACID 500 MG TABLET PO SCH ×2 (09:00→17:00)
[2021-10-05] MEDS: FUROSEMIDE 40 MG TABLET PO SCH (09:00)
[2021-10-05] MEDS: ChlorproMAZINE HCL 50 MG/2 ML AMP IM PRN ×2 (11:03→17:48)
[2021-10-06] MEDS: ASCORBIC ACID 500 MG TABLET PO SCH ×2 (09:00→17:00)
[2021-10-06] MEDS: NICOTINE 21 MG/24 HOUR PATCH TD SCH (09:00)
[2021-10-06] MEDS: MULTIVITAMINS WITH MINERALS, THERAPEUTIC TABLET PO SCH (09:00)
[2021-10-06] MEDS: FUROSEMIDE 40 MG TABLET PO SCH (09:00)
[2021-10-06] MEDS: ARIPiprazole LAUROXIL ER SUSPENSION 882 MG/3.2 ML SYRINGE IM SCH (09:00)
[2021-10-06] MEDS: DIVALPROEX SODIUM 500 MG DR TABLET PO SCH ×2 (09:00→17:00)
[2021-10-06] MEDS: METOPROLOL TARTRATE 50 MG TABLET PO SCH ×2 (09:00→17:00)
[2021-10-06] MEDS: PREGABALIN 50 MG CAPSULE PO SCH (09:00)
[2021-10-06] MEDS: ChlorproMAZINE HCL 50 MG/2 ML AMP IM PRN ×2 (10:34→18:00)
[2021-10-07] MEDS: NICOTINE 21 MG/24 HOUR PATCH TD SCH (09:00)
[2021-10-07] MEDS: DIVALPROEX SODIUM 500 MG DR TABLET PO SCH ×2 (09:00→17:00)
[2021-10-07] MEDS: PREGABALIN 50 MG CAPSULE PO SCH (09:00)
[2021-10-07] MEDS: FUROSEMIDE 40 MG TABLET PO SCH (09:00)
[2021-10-07] MEDS: MULTIVITAMINS WITH MINERALS, THERAPEUTIC TABLET PO SCH (09:00)
[2021-10-07] MEDS: METOPROLOL TARTRATE 50 MG TABLET PO SCH ×2 (09:00→17:00)
[2021-10-07] MEDS: ASCORBIC ACID 500 MG TABLET PO SCH ×2 (09:00→17:00)
[2021-10-07] MEDS: ChlorproMAZINE HCL 50 MG/2 ML AMP IM PRN ×2 (09:53→18:02)
[2021-10-07] MEDS: ARIPiprazole LAUROXIL ER SUSPENSION 882 MG/3.2 ML SYRINGE IM SCH (18:03)
[2021-10-08] MEDS: METOPROLOL TARTRATE 50 MG TABLET PO SCH ×2 (09:00→17:00)
[2021-10-08] MEDS: FUROSEMIDE 40 MG TABLET PO SCH (09:00)
[2021-10-08] MEDS: NICOTINE 21 MG/24 HOUR PATCH TD SCH (09:00)
[2021-10-08] MEDS: ASCORBIC ACID 500 MG TABLET PO SCH ×2 (09:00→17:00)
[2021-10-08] MEDS: MULTIVITAMINS WITH MINERALS, THERAPEUTIC TABLET PO SCH (09:00)
[2021-10-08] MEDS: PREGABALIN 50 MG CAPSULE PO SCH (09:00)
[2021-10-08] MEDS: DIVALPROEX SODIUM 500 MG DR TABLET PO SCH ×2 (09:00→17:00)
[2021-10-08] MEDS: ChlorproMAZINE HCL 50 MG/2 ML AMP IM PRN ×2 (09:45→17:32)
[2021-10-09] MEDS: DIVALPROEX SODIUM 500 MG DR TABLET PO SCH ×3 (08:20→17:00)
[2021-10-09] MEDS: MULTIVITAMINS WITH MINERALS, THERAPEUTIC TABLET PO SCH (09:00)
[2021-10-09] MEDS: FUROSEMIDE 40 MG TABLET PO SCH (09:00)
[2021-10-09] MEDS: ASCORBIC ACID 500 MG TABLET PO SCH ×2 (09:00→17:00)
[2021-10-09] MEDS: METOPROLOL TARTRATE 50 MG TABLET PO SCH ×2 (09:00→17:00)
[2021-10-09] MEDS: NICOTINE 21 MG/24 HOUR PATCH TD SCH (09:00)
[2021-10-09] MEDS: PREGABALIN 50 MG CAPSULE PO SCH (09:00)
[2021-10-09] MEDS: ChlorproMAZINE HCL 50 MG/2 ML AMP IM PRN ×2 (10:04→17:42)
[2021-10-10] MEDS: METOPROLOL TARTRATE 50 MG TABLET PO SCH ×2 (09:00→17:00)
[2021-10-10] MEDS: ASCORBIC ACID 500 MG TABLET PO SCH ×2 (09:00→17:00)
[2021-10-10] MEDS: PREGABALIN 50 MG CAPSULE PO SCH (09:00)
[2021-10-10] MEDS: FUROSEMIDE 40 MG TABLET PO SCH (09:00)
[2021-10-10] MEDS: MULTIVITAMINS WITH MINERALS, THERAPEUTIC TABLET PO SCH (09:00)
[2021-10-10] MEDS: NICOTINE 21 MG/24 HOUR PATCH TD SCH (09:00)
[2021-10-10] MEDS: DIVALPROEX SODIUM 500 MG DR TABLET PO SCH ×2 (09:00→17:00)
[2021-10-10] MEDS: ChlorproMAZINE HCL 50 MG/2 ML AMP IM PRN ×2 (10:46→17:30)
[2021-10-11] MEDS: PREGABALIN 50 MG CAPSULE PO SCH (08:47)
[2021-10-11] MEDS: NICOTINE 21 MG/24 HOUR PATCH TD SCH (08:47)
[2021-10-11] MEDS: FUROSEMIDE 40 MG TABLET PO SCH (08:47)
[2021-10-11] MEDS: MULTIVITAMINS WITH MINERALS, THERAPEUTIC TABLET PO SCH (08:47)
[2021-10-11] MEDS: METOPROLOL TARTRATE 50 MG TABLET PO SCH ×2 (08:47→16:35)
[2021-10-11] MEDS: ASCORBIC ACID 500 MG TABLET PO SCH ×2 (08:47→16:35)
[2021-10-11] MEDS: DIVALPROEX SODIUM 500 MG DR TABLET PO SCH ×2 (09:00→16:35)
[2021-10-11] MEDS: ChlorproMAZINE HCL 50 MG/2 ML AMP IM PRN ×2 (09:21→16:35)
[2021-10-12] MEDS: METOPROLOL TARTRATE 50 MG TABLET PO SCH ×2 (09:00→17:00)
[2021-10-12] MEDS: DIVALPROEX SODIUM 500 MG DR TABLET PO SCH ×2 (09:00→17:00)
[2021-10-12] MEDS: NICOTINE 21 MG/24 HOUR PATCH TD SCH (09:00)
[2021-10-12] MEDS: ASCORBIC ACID 500 MG TABLET PO SCH ×2 (09:00→17:00)
[2021-10-12] MEDS: FUROSEMIDE 40 MG TABLET PO SCH (09:00)
[2021-10-12] MEDS: MULTIVITAMINS WITH MINERALS, THERAPEUTIC TABLET PO SCH (09:00)
[2021-10-12] MEDS: PREGABALIN 50 MG CAPSULE PO SCH (09:00)
[2021-10-12] MEDS: ChlorproMAZINE HCL 50 MG/2 ML AMP IM PRN ×2 (10:42→19:46)
[2021-10-12 20:44] LABS: COVID AG,FIA SOURCE NASAL SWAB
[2021-10-13] MEDS: ASCORBIC ACID 500 MG TABLET PO SCH ×2 (09:00→17:00)
[2021-10-13] MEDS: NICOTINE 21 MG/24 HOUR PATCH TD SCH (09:00)
[2021-10-13] MEDS: DIVALPROEX SODIUM 500 MG DR TABLET PO SCH ×2 (09:00→17:00)
[2021-10-13] MEDS: FUROSEMIDE 40 MG TABLET PO SCH (09:00)
[2021-10-13] MEDS: MULTIVITAMINS WITH MINERALS, THERAPEUTIC TABLET PO SCH (09:00)
[2021-10-13] MEDS: METOPROLOL TARTRATE 50 MG TABLET PO SCH ×2 (09:00→17:00)
[2021-10-13] MEDS: PREGABALIN 50 MG CAPSULE PO SCH (09:00)
[2021-10-13] MEDS: ChlorproMAZINE HCL 50 MG/2 ML AMP IM PRN ×2 (10:52→17:30)
[2021-10-14] MEDS: DIVALPROEX SODIUM 500 MG DR TABLET PO SCH ×2 (09:00→17:00)
[2021-10-14] MEDS: METOPROLOL TARTRATE 50 MG TABLET PO SCH ×2 (09:00→17:00)
[2021-10-14] MEDS: NICOTINE 21 MG/24 HOUR PATCH TD SCH (09:00)
[2021-10-14] MEDS: FUROSEMIDE 40 MG TABLET PO SCH (09:00)
[2021-10-14] MEDS: MULTIVITAMINS WITH MINERALS, THERAPEUTIC TABLET PO SCH (09:00)
[2021-10-14] MEDS: ASCORBIC ACID 500 MG TABLET PO SCH ×2 (09:00→17:00)
[2021-10-14] MEDS: PREGABALIN 50 MG CAPSULE PO SCH (09:00)
[2021-10-14] MEDS: ChlorproMAZINE HCL 50 MG/2 ML AMP IM PRN ×2 (10:40→17:30)
[2021-10-15] MEDS: MULTIVITAMINS WITH MINERALS, THERAPEUTIC TABLET PO SCH (09:00)
[2021-10-15] MEDS: FUROSEMIDE 40 MG TABLET PO SCH (09:00)
[2021-10-15] MEDS: NICOTINE 21 MG/24 HOUR PATCH TD SCH (09:00)
[2021-10-15] MEDS: METOPROLOL TARTRATE 50 MG TABLET PO SCH ×2 (09:00→17:00)
[2021-10-15] MEDS: ASCORBIC ACID 500 MG TABLET PO SCH ×2 (09:00→17:00)
[2021-10-15] MEDS: PREGABALIN 50 MG CAPSULE PO SCH (09:00)
[2021-10-15] MEDS: DIVALPROEX SODIUM 500 MG DR TABLET PO SCH ×2 (09:00→17:00)
[2021-10-15] MEDS: ChlorproMAZINE HCL 50 MG/2 ML AMP IM PRN ×2 (10:22→21:46)
[2021-10-16] MEDS: DIVALPROEX SODIUM 500 MG DR TABLET PO SCH ×2 (09:00→17:00)
[2021-10-16] MEDS: FUROSEMIDE 40 MG TABLET PO SCH (09:00)
[2021-10-16] MEDS: ASCORBIC ACID 500 MG TABLET PO SCH ×2 (09:00→17:00)
[2021-10-16] MEDS: MULTIVITAMINS WITH MINERALS, THERAPEUTIC TABLET PO SCH (09:00)
[2021-10-16] MEDS: METOPROLOL TARTRATE 50 MG TABLET PO SCH ×2 (09:00→17:00)
[2021-10-16] MEDS: NICOTINE 21 MG/24 HOUR PATCH TD SCH (09:00)
[2021-10-16] MEDS: PREGABALIN 50 MG CAPSULE PO SCH (09:00)
[2021-10-16] MEDS: ChlorproMAZINE HCL 50 MG/2 ML AMP IM PRN ×2 (10:08→17:20)
[2021-10-17] MEDS: PREGABALIN 50 MG CAPSULE PO SCH ×2 (08:55→09:00)
[2021-10-17] MEDS: ASCORBIC ACID 500 MG TABLET PO SCH ×3 (08:55→17:00)
[2021-10-17] MEDS: DIVALPROEX SODIUM 500 MG DR TABLET PO SCH ×3 (08:55→17:00)
[2021-10-17] MEDS: MULTIVITAMINS WITH MINERALS, THERAPEUTIC TABLET PO SCH ×2 (08:55→09:00)
[2021-10-17] MEDS: METOPROLOL TARTRATE 50 MG TABLET PO SCH ×2 (09:00→17:00)
[2021-10-17] MEDS: NICOTINE 21 MG/24 HOUR PATCH TD SCH (09:00)
[2021-10-17] MEDS: FUROSEMIDE 40 MG TABLET PO SCH (09:00)
[2021-10-17] MEDS: ChlorproMAZINE HCL 50 MG/2 ML AMP IM PRN ×2 (10:23→17:32)
[2021-10-18] MEDS: DIVALPROEX SODIUM 500 MG DR TABLET PO SCH ×2 (09:00→17:00)
[2021-10-18] MEDS: METOPROLOL TARTRATE 50 MG TABLET PO SCH ×2 (09:00→17:00)
[2021-10-18] MEDS: MULTIVITAMINS WITH MINERALS, THERAPEUTIC TABLET PO SCH (09:00)
[2021-10-18] MEDS: ASCORBIC ACID 500 MG TABLET PO SCH ×2 (09:00→17:00)
[2021-10-18] MEDS: NICOTINE 21 MG/24 HOUR PATCH TD SCH (09:00)
[2021-10-18] MEDS: PREGABALIN 50 MG CAPSULE PO SCH (09:00)
[2021-10-18] MEDS: FUROSEMIDE 40 MG TABLET PO SCH (09:00)
[2021-10-18] MEDS: ChlorproMAZINE HCL 50 MG/2 ML AMP IM PRN ×2 (10:05→18:00)
[2021-10-18 14:11] LABS: ALBUMIN 2.9 g/dL (3.4-5.0); BILIRUBIN,TOTAL 1.1 mg/dL (0.1-1.0); CALCIUM, TOTAL 9.1 mg/dL (8.8-10.5); CREATININE 1.23 mg/dL (0.60-1.30); POTASSIUM 4.3 mmol/L (3.5-5.1); TOTAL PROTEIN, SERUM 6.5 g/dL (6.4-8.2)
[2021-10-19] MEDS: NICOTINE 21 MG/24 HOUR PATCH TD SCH (09:00)
[2021-10-19] MEDS: ASCORBIC ACID 500 MG TABLET PO SCH ×2 (09:00→18:50)
[2021-10-19] MEDS: DIVALPROEX SODIUM 500 MG DR TABLET PO SCH ×2 (09:00→17:00)
[2021-10-19] MEDS: METOPROLOL TARTRATE 50 MG TABLET PO SCH ×2 (09:00→17:00)
[2021-10-19] MEDS: PREGABALIN 50 MG CAPSULE PO SCH (09:00)
[2021-10-19] MEDS: MULTIVITAMINS WITH MINERALS, THERAPEUTIC TABLET PO SCH (09:00)
[2021-10-19] MEDS: FUROSEMIDE 40 MG TABLET PO SCH (09:00)
[2021-10-19] MEDS: ChlorproMAZINE HCL 50 MG/2 ML AMP IM PRN ×2 (11:14→18:50)
[2021-10-20] MEDS: METOPROLOL TARTRATE 50 MG TABLET PO SCH ×2 (09:00→17:00)
[2021-10-20] MEDS: PREGABALIN 50 MG CAPSULE PO SCH (09:00)
[2021-10-20] MEDS: NICOTINE 21 MG/24 HOUR PATCH TD SCH (09:00)
[2021-10-20] MEDS: FUROSEMIDE 40 MG TABLET PO SCH (09:00)
[2021-10-20] MEDS: ASCORBIC ACID 500 MG TABLET PO SCH ×2 (09:00→17:00)
[2021-10-20] MEDS: DIVALPROEX SODIUM 500 MG DR TABLET PO SCH ×2 (09:00→17:00)
[2021-10-20] MEDS: MULTIVITAMINS WITH MINERALS, THERAPEUTIC TABLET PO SCH (09:00)
[2021-10-20] MEDS: ChlorproMAZINE HCL 50 MG/2 ML AMP IM PRN ×2 (10:10→17:11)
[2021-10-20 15:22] LABS: COVID AG,FIA SOURCE NASOPHARYNGEAL
[2021-10-21] MEDS: NICOTINE 21 MG/24 HOUR PATCH TD SCH (09:00)
[2021-10-21] MEDS: DIVALPROEX SODIUM 500 MG DR TABLET PO SCH ×2 (09:00→17:00)
[2021-10-21] MEDS: METOPROLOL TARTRATE 50 MG TABLET PO SCH ×2 (09:00→17:00)
[2021-10-21] MEDS: MULTIVITAMINS WITH MINERALS, THERAPEUTIC TABLET PO SCH (09:00)
[2021-10-21] MEDS: FUROSEMIDE 40 MG TABLET PO SCH (09:00)
[2021-10-21] MEDS: ASCORBIC ACID 500 MG TABLET PO SCH ×2 (09:00→17:00)
[2021-10-21] MEDS: PREGABALIN 50 MG CAPSULE PO SCH (09:00)
[2021-10-21] MEDS: ChlorproMAZINE HCL 50 MG/2 ML AMP IM PRN ×2 (09:33→18:00)
[2021-10-22] MEDS: ASCORBIC ACID 500 MG TABLET PO SCH ×2 (09:00→17:00)
[2021-10-22] MEDS: MULTIVITAMINS WITH MINERALS, THERAPEUTIC TABLET PO SCH (09:00)
[2021-10-22] MEDS: PREGABALIN 50 MG CAPSULE PO SCH (09:00)
[2021-10-22] MEDS: DIVALPROEX SODIUM 500 MG DR TABLET PO SCH ×2 (09:00→17:00)
[2021-10-22] MEDS: NICOTINE 21 MG/24 HOUR PATCH TD SCH (09:00)
[2021-10-22] MEDS: METOPROLOL TARTRATE 50 MG TABLET PO SCH ×2 (09:00→17:00)
[2021-10-22] MEDS: FUROSEMIDE 40 MG TABLET PO SCH (09:00)
[2021-10-22] MEDS: ChlorproMAZINE HCL 50 MG/2 ML AMP IM PRN ×2 (09:24→17:31)
[2021-10-22] MEDS: MEGESTROL ACETATE 400 MG/10 ML SUSPENSION UDCUP PO SCH (17:00)
[2021-10-23] MEDS: METOPROLOL TARTRATE 50 MG TABLET PO SCH ×2 (09:00→17:00)
[2021-10-23] MEDS: ASCORBIC ACID 500 MG TABLET PO SCH ×2 (09:00→17:00)
[2021-10-23] MEDS: MEGESTROL ACETATE 400 MG/10 ML SUSPENSION UDCUP PO SCH ×2 (09:00→17:00)
[2021-10-23] MEDS: NICOTINE 21 MG/24 HOUR PATCH TD SCH (09:00)
[2021-10-23] MEDS: FUROSEMIDE 40 MG TABLET PO SCH (09:00)
[2021-10-23] MEDS: DIVALPROEX SODIUM 500 MG DR TABLET PO SCH ×2 (09:00→17:00)
[2021-10-23] MEDS: MULTIVITAMINS WITH MINERALS, THERAPEUTIC TABLET PO SCH (09:00)
[2021-10-23] MEDS: PREGABALIN 50 MG CAPSULE PO SCH (09:00)
[2021-10-23] MEDS: ChlorproMAZINE HCL 50 MG/2 ML AMP IM PRN ×2 (09:20→18:26)
[2021-10-24] MEDS: MULTIVITAMINS WITH MINERALS, THERAPEUTIC TABLET PO SCH (09:00)
[2021-10-24] MEDS: METOPROLOL TARTRATE 50 MG TABLET PO SCH ×2 (09:00→17:00)
[2021-10-24] MEDS: ASCORBIC ACID 500 MG TABLET PO SCH ×2 (09:00→17:00)
[2021-10-24] MEDS: DIVALPROEX SODIUM 500 MG DR TABLET PO SCH ×2 (09:00→17:00)
[2021-10-24] MEDS: PREGABALIN 50 MG CAPSULE PO SCH (09:00)
[2021-10-24] MEDS: FUROSEMIDE 40 MG TABLET PO SCH (09:00)
[2021-10-24] MEDS: MEGESTROL ACETATE 400 MG/10 ML SUSPENSION UDCUP PO SCH ×2 (09:00→17:00)
[2021-10-24] MEDS: NICOTINE 21 MG/24 HOUR PATCH TD SCH (09:00)
[2021-10-24] MEDS: ChlorproMAZINE HCL 50 MG/2 ML AMP IM PRN ×2 (11:46→18:17)
[2021-10-25] MEDS: PREGABALIN 50 MG CAPSULE PO SCH (09:00)
[2021-10-25] MEDS: NICOTINE 21 MG/24 HOUR PATCH TD SCH (09:00)
[2021-10-25] MEDS: FUROSEMIDE 40 MG TABLET PO SCH (09:00)
[2021-10-25] MEDS: ASCORBIC ACID 500 MG TABLET PO SCH ×2 (09:00→17:00)
[2021-10-25] MEDS: METOPROLOL TARTRATE 50 MG TABLET PO SCH ×2 (09:00→17:00)
[2021-10-25] MEDS: MULTIVITAMINS WITH MINERALS, THERAPEUTIC TABLET PO SCH (09:00)
[2021-10-25] MEDS: DIVALPROEX SODIUM 500 MG DR TABLET PO SCH ×2 (09:00→17:00)
[2021-10-25] MEDS: MEGESTROL ACETATE 400 MG/10 ML SUSPENSION UDCUP PO SCH ×2 (09:00→17:00)
[2021-10-25] MEDS: ChlorproMAZINE HCL 50 MG/2 ML AMP IM PRN ×2 (10:03→17:24)
[2021-10-26] MEDS: MULTIVITAMINS WITH MINERALS, THERAPEUTIC TABLET PO SCH (09:00)
[2021-10-26] MEDS: FUROSEMIDE 40 MG TABLET PO SCH (09:00)
[2021-10-26] MEDS: NICOTINE 21 MG/24 HOUR PATCH TD SCH (09:00)
[2021-10-26] MEDS: DIVALPROEX SODIUM 500 MG DR TABLET PO SCH ×2 (09:00→16:46)
[2021-10-26] MEDS: ASCORBIC ACID 500 MG TABLET PO SCH ×2 (09:00→16:46)
[2021-10-26] MEDS: METOPROLOL TARTRATE 50 MG TABLET PO SCH ×2 (09:00→16:46)
[2021-10-26] MEDS: PREGABALIN 50 MG CAPSULE PO SCH (09:00)
[2021-10-26] MEDS: MEGESTROL ACETATE 400 MG/10 ML SUSPENSION UDCUP PO SCH ×2 (09:00→16:46)
[2021-10-26] MEDS: ChlorproMAZINE HCL 50 MG/2 ML AMP IM PRN ×2 (10:11→19:43)
[2021-10-27] MEDS: MEGESTROL ACETATE 400 MG/10 ML SUSPENSION UDCUP PO SCH ×2 (09:00→17:00)
[2021-10-27] MEDS: DIVALPROEX SODIUM 500 MG DR TABLET PO SCH ×2 (09:00→17:00)
[2021-10-27] MEDS: FUROSEMIDE 40 MG TABLET PO SCH (09:00)
[2021-10-27] MEDS: NICOTINE 21 MG/24 HOUR PATCH TD SCH (09:00)
[2021-10-27] MEDS: ASCORBIC ACID 500 MG TABLET PO SCH ×2 (09:00→17:00)
[2021-10-27] MEDS: METOPROLOL TARTRATE 50 MG TABLET PO SCH ×2 (09:00→17:00)
[2021-10-27] MEDS: MULTIVITAMINS WITH MINERALS, THERAPEUTIC TABLET PO SCH (09:00)
[2021-10-27] MEDS: PREGABALIN 50 MG CAPSULE PO SCH (09:00)
[2021-10-27] MEDS: ChlorproMAZINE HCL 50 MG/2 ML AMP IM PRN ×2 (09:59→18:05)
[2021-10-27 12:36] LABS: COVID AG,FIA SOURCE NASOPHARYNGEAL
[2021-10-28] MEDS: NICOTINE 21 MG/24 HOUR PATCH TD SCH (09:00)
[2021-10-28] MEDS: MEGESTROL ACETATE 400 MG/10 ML SUSPENSION UDCUP PO SCH ×2 (09:00→17:00)
[2021-10-28] MEDS: DIVALPROEX SODIUM 500 MG DR TABLET PO SCH ×2 (09:00→17:00)
[2021-10-28] MEDS: METOPROLOL TARTRATE 50 MG TABLET PO SCH ×2 (09:00→17:00)
[2021-10-28] MEDS: ASCORBIC ACID 500 MG TABLET PO SCH ×2 (09:00→17:00)
[2021-10-28] MEDS: MULTIVITAMINS WITH MINERALS, THERAPEUTIC TABLET PO SCH (09:00)
[2021-10-28] MEDS: FUROSEMIDE 40 MG TABLET PO SCH (09:00)
[2021-10-28] MEDS: PREGABALIN 50 MG CAPSULE PO SCH (09:00)
[2021-10-28] MEDS: ChlorproMAZINE HCL 50 MG/2 ML AMP IM PRN (10:47)
[2021-10-29] MEDS: MEGESTROL ACETATE 400 MG/10 ML SUSPENSION UDCUP PO SCH ×2 (09:00→17:00)
[2021-10-29] MEDS: DIVALPROEX SODIUM 500 MG DR TABLET PO SCH ×2 (09:00→17:00)
[2021-10-29] MEDS: NICOTINE 21 MG/24 HOUR PATCH TD SCH (09:00)
[2021-10-29] MEDS: ASCORBIC ACID 500 MG TABLET PO SCH ×2 (09:00→17:00)
[2021-10-29] MEDS: MULTIVITAMINS WITH MINERALS, THERAPEUTIC TABLET PO SCH (09:00)
[2021-10-29] MEDS: PREGABALIN 50 MG CAPSULE PO SCH (09:00)
[2021-10-29] MEDS: METOPROLOL TARTRATE 50 MG TABLET PO SCH ×2 (09:00→17:00)
[2021-10-29] MEDS: FUROSEMIDE 40 MG TABLET PO SCH (09:00)
[2021-10-29] MEDS: ChlorproMAZINE HCL 50 MG/2 ML AMP IM PRN ×2 (10:08→17:45)
[2021-10-30] MEDS: MULTIVITAMINS WITH MINERALS, THERAPEUTIC TABLET PO SCH (09:00)
[2021-10-30] MEDS: ASCORBIC ACID 500 MG TABLET PO SCH ×2 (09:00→17:00)
[2021-10-30] MEDS: PREGABALIN 50 MG CAPSULE PO SCH (09:00)
[2021-10-30] MEDS: FUROSEMIDE 40 MG TABLET PO SCH (09:00)
[2021-10-30] MEDS: NICOTINE 21 MG/24 HOUR PATCH TD SCH (09:00)
[2021-10-30] MEDS: DIVALPROEX SODIUM 500 MG DR TABLET PO SCH ×2 (09:00→17:00)
[2021-10-30] MEDS: MEGESTROL ACETATE 400 MG/10 ML SUSPENSION UDCUP PO SCH ×2 (09:00→17:00)
[2021-10-30] MEDS: METOPROLOL TARTRATE 50 MG TABLET PO SCH ×2 (09:00→17:00)
[2021-10-30] MEDS: ChlorproMAZINE HCL 50 MG/2 ML AMP IM PRN ×2 (10:28→17:44)
[2021-10-31] MEDS: FUROSEMIDE 40 MG TABLET PO SCH (09:00)
[2021-10-31] MEDS: MULTIVITAMINS WITH MINERALS, THERAPEUTIC TABLET PO SCH (09:00)
[2021-10-31] MEDS: METOPROLOL TARTRATE 50 MG TABLET PO SCH ×2 (09:00→17:00)
[2021-10-31] MEDS: MEGESTROL ACETATE 400 MG/10 ML SUSPENSION UDCUP PO SCH ×2 (09:00→17:00)
[2021-10-31] MEDS: DIVALPROEX SODIUM 500 MG DR TABLET PO SCH ×2 (09:00→17:00)
[2021-10-31] MEDS: PREGABALIN 50 MG CAPSULE PO SCH (09:00)
[2021-10-31] MEDS: NICOTINE 21 MG/24 HOUR PATCH TD SCH (09:00)
[2021-10-31] MEDS: ASCORBIC ACID 500 MG TABLET PO SCH ×2 (09:00→17:00)
[2021-10-31] MEDS: ChlorproMAZINE HCL 50 MG/2 ML AMP IM PRN ×2 (10:20→17:26)
[2021-11-01] MEDS: NICOTINE 21 MG/24 HOUR PATCH TD SCH (09:00)
[2021-11-01] MEDS: FUROSEMIDE 40 MG TABLET PO SCH (09:00)
[2021-11-01] MEDS: MULTIVITAMINS WITH MINERALS, THERAPEUTIC TABLET PO SCH (09:00)
[2021-11-01] MEDS: ASCORBIC ACID 500 MG TABLET PO SCH ×2 (09:00→17:00)
[2021-11-01] MEDS: DIVALPROEX SODIUM 500 MG DR TABLET PO SCH (09:00)
[2021-11-01] MEDS: METOPROLOL TARTRATE 50 MG TABLET PO SCH ×2 (09:00→17:00)
[2021-11-01] MEDS: MEGESTROL ACETATE 400 MG/10 ML SUSPENSION UDCUP PO SCH ×2 (09:00→17:00)
[2021-11-01] MEDS: PREGABALIN 50 MG CAPSULE PO SCH (09:00)
[2021-11-01] MEDS: ChlorproMAZINE HCL 50 MG/2 ML AMP IM PRN ×2 (10:17→21:04)
[2021-11-01] MEDS: VALPROIC ACID 250 MG/5 ML SOLUTION UDCUP PO SCH ×2 (13:45→21:00)
[2021-11-02] MEDS: PREGABALIN 50 MG CAPSULE PO SCH (09:00)
[2021-11-02] MEDS: FUROSEMIDE 40 MG TABLET PO SCH (09:00)
[2021-11-02] MEDS: VALPROIC ACID 250 MG/5 ML SOLUTION UDCUP PO SCH ×2 (09:00→20:29)
[2021-11-02] MEDS: ASCORBIC ACID 500 MG TABLET PO SCH ×2 (09:00→17:00)
[2021-11-02] MEDS: MEGESTROL ACETATE 400 MG/10 ML SUSPENSION UDCUP PO SCH ×2 (09:00→17:00)
[2021-11-02] MEDS: MULTIVITAMINS WITH MINERALS, THERAPEUTIC TABLET PO SCH (09:00)
[2021-11-02] MEDS: NICOTINE 21 MG/24 HOUR PATCH TD SCH (09:00)
[2021-11-02] MEDS: METOPROLOL TARTRATE 50 MG TABLET PO SCH ×2 (09:00→17:00)
[2021-11-02] MEDS: ChlorproMAZINE HCL 50 MG/2 ML AMP IM PRN ×2 (11:32→20:29)
[2021-11-03 08:55] LABS: COVID AG,FIA SOURCE NASAL SWAB
[2021-11-03] MEDS: VALPROIC ACID 250 MG/5 ML SOLUTION UDCUP PO SCH ×2 (09:00→20:05)
[2021-11-03] MEDS: FUROSEMIDE 40 MG TABLET PO SCH (09:00)
[2021-11-03] MEDS: NICOTINE 21 MG/24 HOUR PATCH TD SCH (09:00)
[2021-11-03] MEDS: MEGESTROL ACETATE 400 MG/10 ML SUSPENSION UDCUP PO SCH ×2 (09:00→16:40)
[2021-11-03] MEDS: ASCORBIC ACID 500 MG TABLET PO SCH ×2 (09:00→16:40)
[2021-11-03] MEDS: MULTIVITAMINS WITH MINERALS, THERAPEUTIC TABLET PO SCH (09:00)
[2021-11-03] MEDS: METOPROLOL TARTRATE 50 MG TABLET PO SCH ×2 (09:00→16:40)
[2021-11-03] MEDS: PREGABALIN 50 MG CAPSULE PO SCH (09:00)
[2021-11-03] MEDS: ChlorproMAZINE HCL 50 MG/2 ML AMP IM PRN ×2 (11:52→20:23)
[2021-11-04] MEDS: PREGABALIN 50 MG CAPSULE PO SCH (09:00)
[2021-11-04] MEDS: NICOTINE 21 MG/24 HOUR PATCH TD SCH (09:00)
[2021-11-04] MEDS: MEGESTROL ACETATE 400 MG/10 ML SUSPENSION UDCUP PO SCH ×2 (09:00→17:00)
[2021-11-04] MEDS: METOPROLOL TARTRATE 50 MG TABLET PO SCH ×2 (09:00→17:00)
[2021-11-04] MEDS: VALPROIC ACID 250 MG/5 ML SOLUTION UDCUP PO SCH ×2 (09:00→20:43)
[2021-11-04] MEDS: FUROSEMIDE 40 MG TABLET PO SCH (09:00)
[2021-11-04] MEDS: MULTIVITAMINS WITH MINERALS, THERAPEUTIC TABLET PO SCH (09:00)
[2021-11-04] MEDS: ASCORBIC ACID 500 MG TABLET PO SCH ×2 (09:00→17:00)
[2021-11-04] MEDS: ChlorproMAZINE HCL 50 MG/2 ML AMP IM PRN ×2 (11:16→20:55)
[2021-11-05] MEDS: VALPROIC ACID 250 MG/5 ML SOLUTION UDCUP PO SCH ×2 (08:55→21:00)
[2021-11-05] MEDS: FUROSEMIDE 40 MG TABLET PO SCH (08:55)
[2021-11-05] MEDS: NICOTINE 21 MG/24 HOUR PATCH TD SCH (08:55)
[2021-11-05] MEDS: PREGABALIN 50 MG CAPSULE PO SCH (08:55)
[2021-11-05] MEDS: ASCORBIC ACID 500 MG TABLET PO SCH ×2 (08:55→17:00)
[2021-11-05] MEDS: METOPROLOL TARTRATE 50 MG TABLET PO SCH ×2 (08:55→17:00)
[2021-11-05] MEDS: MULTIVITAMINS WITH MINERALS, THERAPEUTIC TABLET PO SCH (08:55)
[2021-11-05] MEDS: MEGESTROL ACETATE 400 MG/10 ML SUSPENSION UDCUP PO SCH ×2 (08:55→17:00)
[2021-11-05] MEDS: ChlorproMAZINE HCL 50 MG/2 ML AMP IM PRN ×2 (09:17→21:10)
[2021-11-05] MEDS: ARIPiprazole LAUROXIL ER SUSPENSION 882 MG/3.2 ML SYRINGE IM SCH (09:17)
[2021-11-06] MEDS: NICOTINE 21 MG/24 HOUR PATCH TD SCH (09:00)
[2021-11-06] MEDS: VALPROIC ACID 250 MG/5 ML SOLUTION UDCUP PO SCH ×2 (09:00→20:34)
[2021-11-06] MEDS: MULTIVITAMINS WITH MINERALS, THERAPEUTIC TABLET PO SCH (09:00)
[2021-11-06] MEDS: FUROSEMIDE 40 MG TABLET PO SCH (09:00)
[2021-11-06] MEDS: MEGESTROL ACETATE 400 MG/10 ML SUSPENSION UDCUP PO SCH ×2 (09:00→17:00)
[2021-11-06] MEDS: METOPROLOL TARTRATE 50 MG TABLET PO SCH ×2 (09:00→17:00)
[2021-11-06] MEDS: ASCORBIC ACID 500 MG TABLET PO SCH ×2 (09:00→17:00)
[2021-11-06] MEDS: PREGABALIN 50 MG CAPSULE PO SCH (09:00)
[2021-11-06] MEDS: ChlorproMAZINE HCL 50 MG/2 ML AMP IM PRN ×2 (09:53→20:15)
[2021-11-07] MEDS: NICOTINE 21 MG/24 HOUR PATCH TD SCH (09:00)
[2021-11-07] MEDS: ASCORBIC ACID 500 MG TABLET PO SCH ×2 (09:00→17:00)
[2021-11-07] MEDS: METOPROLOL TARTRATE 50 MG TABLET PO SCH ×2 (09:00→17:00)
[2021-11-07] MEDS: PREGABALIN 50 MG CAPSULE PO SCH (09:00)
[2021-11-07] MEDS: MULTIVITAMINS WITH MINERALS, THERAPEUTIC TABLET PO SCH (09:00)
[2021-11-07] MEDS: FUROSEMIDE 40 MG TABLET PO SCH (09:00)
[2021-11-07] MEDS: MEGESTROL ACETATE 400 MG/10 ML SUSPENSION UDCUP PO SCH ×3 (09:00→17:00)
[2021-11-07] MEDS: ChlorproMAZINE HCL 50 MG/2 ML AMP IM PRN (09:19)
[2021-11-07] MEDS: VALPROIC ACID 250 MG/5 ML SOLUTION UDCUP PO SCH ×2 (09:46→21:19)
[2021-11-08] MEDS: PREGABALIN 50 MG CAPSULE PO SCH (09:00)
[2021-11-08] MEDS: NICOTINE 21 MG/24 HOUR PATCH TD SCH (09:00)
[2021-11-08] MEDS: METOPROLOL TARTRATE 50 MG TABLET PO SCH ×2 (09:00→16:51)
[2021-11-08] MEDS: ASCORBIC ACID 500 MG TABLET PO SCH ×2 (09:00→16:51)
[2021-11-08] MEDS: VALPROIC ACID 250 MG/5 ML SOLUTION UDCUP PO SCH ×2 (09:00→21:00)
[2021-11-08] MEDS: MEGESTROL ACETATE 400 MG/10 ML SUSPENSION UDCUP PO SCH ×2 (09:00→16:51)
[2021-11-08] MEDS: MULTIVITAMINS WITH MINERALS, THERAPEUTIC TABLET PO SCH (09:00)
[2021-11-08] MEDS: FUROSEMIDE 40 MG TABLET PO SCH (09:00)
[2021-11-08] MEDS: ChlorproMAZINE HCL 50 MG/2 ML AMP IM PRN ×2 (10:32→21:00)
[2021-11-09] MEDS: ASCORBIC ACID 500 MG TABLET PO SCH ×2 (09:00→17:00)
[2021-11-09] MEDS: NICOTINE 21 MG/24 HOUR PATCH TD SCH (09:00)
[2021-11-09] MEDS: MULTIVITAMINS WITH MINERALS, THERAPEUTIC TABLET PO SCH (09:00)
[2021-11-09] MEDS: MEGESTROL ACETATE 400 MG/10 ML SUSPENSION UDCUP PO SCH ×2 (09:00→17:00)
[2021-11-09] MEDS: PREGABALIN 50 MG CAPSULE PO SCH (09:00)
[2021-11-09] MEDS: FUROSEMIDE 40 MG TABLET PO SCH (09:00)
[2021-11-09] MEDS: METOPROLOL TARTRATE 50 MG TABLET PO SCH ×2 (09:00→17:00)
[2021-11-09] MEDS: VALPROIC ACID 250 MG/5 ML SOLUTION UDCUP PO SCH ×2 (10:00→20:44)
[2021-11-10] MEDS: FUROSEMIDE 40 MG TABLET PO SCH (09:00)
[2021-11-10] MEDS: METOPROLOL TARTRATE 50 MG TABLET PO SCH ×2 (09:00→16:35)
[2021-11-10] MEDS: MULTIVITAMINS WITH MINERALS, THERAPEUTIC TABLET PO SCH (09:00)
[2021-11-10] MEDS: PREGABALIN 50 MG CAPSULE PO SCH (09:00)
[2021-11-10] MEDS: NICOTINE 21 MG/24 HOUR PATCH TD SCH (09:00)
[2021-11-10] MEDS: ASCORBIC ACID 500 MG TABLET PO SCH ×2 (09:00→16:35)
[2021-11-10] MEDS: MEGESTROL ACETATE 400 MG/10 ML SUSPENSION UDCUP PO SCH ×2 (09:00→16:35)
[2021-11-10] MEDS: VALPROIC ACID 250 MG/5 ML SOLUTION UDCUP PO SCH ×2 (10:15→20:08)
[2021-11-10 10:49] LABS: COVID AG,FIA SOURCE NASOPHARYNGEAL
[2021-11-11] MEDS: MULTIVITAMINS WITH MINERALS, THERAPEUTIC TABLET PO SCH (09:00)
[2021-11-11] MEDS: NICOTINE 21 MG/24 HOUR PATCH TD SCH (09:00)
[2021-11-11] MEDS: METOPROLOL TARTRATE 50 MG TABLET PO SCH ×2 (09:00→16:47)
[2021-11-11] MEDS: PREGABALIN 50 MG CAPSULE PO SCH (09:00)
[2021-11-11] MEDS: ASCORBIC ACID 500 MG TABLET PO SCH ×2 (09:00→16:47)
[2021-11-11] MEDS: FUROSEMIDE 40 MG TABLET PO SCH (09:00)
[2021-11-11] MEDS: MEGESTROL ACETATE 400 MG/10 ML SUSPENSION UDCUP PO SCH ×2 (09:00→16:47)
[2021-11-11] MEDS: VALPROIC ACID 250 MG/5 ML SOLUTION UDCUP PO SCH ×2 (09:13→20:40)
[2021-11-12] MEDS: VALPROIC ACID 250 MG/5 ML SOLUTION UDCUP PO SCH ×2 (08:14→20:00)
[2021-11-12] MEDS: FUROSEMIDE 40 MG TABLET PO SCH (09:00)
[2021-11-12] MEDS: METOPROLOL TARTRATE 50 MG TABLET PO SCH ×2 (09:00→17:00)
[2021-11-12] MEDS: MEGESTROL ACETATE 400 MG/10 ML SUSPENSION UDCUP PO SCH ×2 (09:00→17:00)
[2021-11-12] MEDS: MULTIVITAMINS WITH MINERALS, THERAPEUTIC TABLET PO SCH (09:00)
[2021-11-12] MEDS: PREGABALIN 50 MG CAPSULE PO SCH (09:00)
[2021-11-12] MEDS: NICOTINE 21 MG/24 HOUR PATCH TD SCH (09:00)
[2021-11-12] MEDS: ASCORBIC ACID 500 MG TABLET PO SCH ×2 (09:00→17:00)
[2021-11-13] MEDS: MULTIVITAMINS WITH MINERALS, THERAPEUTIC TABLET PO SCH (09:00)
[2021-11-13] MEDS: PREGABALIN 50 MG CAPSULE PO SCH ×2 (09:00→11:16)
[2021-11-13] MEDS: MEGESTROL ACETATE 400 MG/10 ML SUSPENSION UDCUP PO SCH ×3 (09:00→16:46)
[2021-11-13] MEDS: FUROSEMIDE 40 MG TABLET PO SCH ×2 (09:00→11:25)
[2021-11-13] MEDS: NICOTINE 21 MG/24 HOUR PATCH TD SCH (09:00)
[2021-11-13] MEDS: ASCORBIC ACID 500 MG TABLET PO SCH ×2 (09:00→16:47)
[2021-11-13] MEDS: VALPROIC ACID 250 MG/5 ML SOLUTION UDCUP PO SCH ×3 (09:00→20:12)
[2021-11-13] MEDS: METOPROLOL TARTRATE 50 MG TABLET PO SCH ×3 (09:00→16:45)
[2021-11-14] MEDS: METOPROLOL TARTRATE 50 MG TABLET PO SCH ×2 (09:00→16:29)
[2021-11-14] MEDS: MEGESTROL ACETATE 400 MG/10 ML SUSPENSION UDCUP PO SCH ×2 (09:00→16:30)
[2021-11-14] MEDS: PREGABALIN 50 MG CAPSULE PO SCH (09:00)
[2021-11-14] MEDS: NICOTINE 21 MG/24 HOUR PATCH TD SCH (09:00)
[2021-11-14] MEDS: FUROSEMIDE 40 MG TABLET PO SCH (09:00)
[2021-11-14] MEDS: ASCORBIC ACID 500 MG TABLET PO SCH ×2 (09:00→16:30)
[2021-11-14] MEDS: MULTIVITAMINS WITH MINERALS, THERAPEUTIC TABLET PO SCH (09:00)
[2021-11-14] MEDS: VALPROIC ACID 250 MG/5 ML SOLUTION UDCUP PO SCH ×2 (09:59→20:39)
[2021-11-15] MEDS: VALPROIC ACID 250 MG/5 ML SOLUTION UDCUP PO SCH ×2 (08:57→20:50)
[2021-11-15] MEDS: MULTIVITAMINS WITH MINERALS, THERAPEUTIC TABLET PO SCH (09:00)
[2021-11-15] MEDS: ASCORBIC ACID 500 MG TABLET PO SCH ×2 (09:00→16:37)
[2021-11-15] MEDS: NICOTINE 21 MG/24 HOUR PATCH TD SCH (09:00)
[2021-11-15] MEDS: FUROSEMIDE 40 MG TABLET PO SCH (09:00)
[2021-11-15] MEDS: METOPROLOL TARTRATE 50 MG TABLET PO SCH ×2 (09:00→16:36)
[2021-11-15] MEDS: MEGESTROL ACETATE 400 MG/10 ML SUSPENSION UDCUP PO SCH ×2 (09:00→16:36)
[2021-11-15] MEDS: PREGABALIN 50 MG CAPSULE PO SCH (09:00)
[2021-11-16] MEDS: VALPROIC ACID 250 MG/5 ML SOLUTION UDCUP PO SCH ×2 (08:15→20:33)
[2021-11-16] MEDS: FUROSEMIDE 40 MG TABLET PO SCH (09:00)
[2021-11-16] MEDS: PREGABALIN 50 MG CAPSULE PO SCH (09:00)
[2021-11-16] MEDS: MEGESTROL ACETATE 400 MG/10 ML SUSPENSION UDCUP PO SCH ×2 (09:00→17:00)
[2021-11-16] MEDS: ASCORBIC ACID 500 MG TABLET PO SCH ×2 (09:00→17:00)
[2021-11-16] MEDS: METOPROLOL TARTRATE 50 MG TABLET PO SCH ×2 (09:00→17:00)
[2021-11-16] MEDS: NICOTINE 21 MG/24 HOUR PATCH TD SCH (09:00)
[2021-11-16] MEDS: MULTIVITAMINS WITH MINERALS, THERAPEUTIC TABLET PO SCH (09:00)
[2021-11-17] MEDS: VALPROIC ACID 250 MG/5 ML SOLUTION UDCUP PO SCH ×2 (08:25→21:13)
[2021-11-17] MEDS: MULTIVITAMINS WITH MINERALS, THERAPEUTIC TABLET PO SCH (09:00)
[2021-11-17] MEDS: ASCORBIC ACID 500 MG TABLET PO SCH ×2 (09:00→16:54)
[2021-11-17] MEDS: NICOTINE 21 MG/24 HOUR PATCH TD SCH (09:00)
[2021-11-17] MEDS: METOPROLOL TARTRATE 50 MG TABLET PO SCH ×2 (09:00→16:53)
[2021-11-17] MEDS: FUROSEMIDE 40 MG TABLET PO SCH (09:00)
[2021-11-17] MEDS: MEGESTROL ACETATE 400 MG/10 ML SUSPENSION UDCUP PO SCH ×2 (09:00→16:54)
[2021-11-17] MEDS: PREGABALIN 50 MG CAPSULE PO SCH (09:00)
[2021-11-17 15:02] LABS: COVID AG,FIA SOURCE NASOPHARYNGEAL
[2021-11-18] MEDS: ASCORBIC ACID 500 MG TABLET PO SCH ×2 (09:00→17:00)
[2021-11-18] MEDS: NICOTINE 21 MG/24 HOUR PATCH TD SCH (09:00)
[2021-11-18] MEDS: METOPROLOL TARTRATE 50 MG TABLET PO SCH ×2 (09:00→17:00)
[2021-11-18] MEDS: MEGESTROL ACETATE 400 MG/10 ML SUSPENSION UDCUP PO SCH ×2 (09:00→17:00)
[2021-11-18] MEDS: PREGABALIN 50 MG CAPSULE PO SCH (09:00)
[2021-11-18] MEDS: MULTIVITAMINS WITH MINERALS, THERAPEUTIC TABLET PO SCH (09:00)
[2021-11-18] MEDS: FUROSEMIDE 40 MG TABLET PO SCH (09:00)
[2021-11-18] MEDS: VALPROIC ACID 250 MG/5 ML SOLUTION UDCUP PO SCH ×2 (09:39→21:08)
[2021-11-19] MEDS: FUROSEMIDE 40 MG TABLET PO SCH (09:00)
[2021-11-19] MEDS: NICOTINE 21 MG/24 HOUR PATCH TD SCH (09:00)
[2021-11-19] MEDS: PREGABALIN 50 MG CAPSULE PO SCH (09:00)
[2021-11-19] MEDS: ASCORBIC ACID 500 MG TABLET PO SCH ×2 (09:00→17:00)
[2021-11-19] MEDS: MEGESTROL ACETATE 400 MG/10 ML SUSPENSION UDCUP PO SCH ×2 (09:00→17:00)
[2021-11-19] MEDS: METOPROLOL TARTRATE 50 MG TABLET PO SCH ×2 (09:00→17:00)
[2021-11-19] MEDS: MULTIVITAMINS WITH MINERALS, THERAPEUTIC TABLET PO SCH (09:00)
[2021-11-19] MEDS: VALPROIC ACID 250 MG/5 ML SOLUTION UDCUP PO SCH ×2 (09:06→20:21)
[2021-11-20] MEDS: ASCORBIC ACID 500 MG TABLET PO SCH ×2 (09:00→17:00)
[2021-11-20] MEDS: PREGABALIN 50 MG CAPSULE PO SCH (09:00)
[2021-11-20] MEDS: FUROSEMIDE 40 MG TABLET PO SCH (09:00)
[2021-11-20] MEDS: MULTIVITAMINS WITH MINERALS, THERAPEUTIC TABLET PO SCH (09:00)
[2021-11-20] MEDS: METOPROLOL TARTRATE 50 MG TABLET PO SCH ×2 (09:00→17:00)
[2021-11-20] MEDS: MEGESTROL ACETATE 400 MG/10 ML SUSPENSION UDCUP PO SCH ×2 (09:00→17:00)
[2021-11-20] MEDS: NICOTINE 21 MG/24 HOUR PATCH TD SCH (09:00)
[2021-11-20] MEDS: VALPROIC ACID 250 MG/5 ML SOLUTION UDCUP PO SCH ×2 (09:09→20:13)
[2021-11-21] MEDS: VALPROIC ACID 250 MG/5 ML SOLUTION UDCUP PO SCH ×2 (08:39→20:02)
[2021-11-21] MEDS: NICOTINE 21 MG/24 HOUR PATCH TD SCH (09:00)
[2021-11-21] MEDS: MULTIVITAMINS WITH MINERALS, THERAPEUTIC TABLET PO SCH (09:00)
[2021-11-21] MEDS: METOPROLOL TARTRATE 50 MG TABLET PO SCH ×2 (09:00→17:00)
[2021-11-21] MEDS: PREGABALIN 50 MG CAPSULE PO SCH (09:00)
[2021-11-21] MEDS: MEGESTROL ACETATE 400 MG/10 ML SUSPENSION UDCUP PO SCH ×2 (09:00→17:00)
[2021-11-21] MEDS: ASCORBIC ACID 500 MG TABLET PO SCH ×2 (09:00→17:00)
[2021-11-21] MEDS: FUROSEMIDE 40 MG TABLET PO SCH (09:00)
[2021-11-22] MEDS: VALPROIC ACID 250 MG/5 ML SOLUTION UDCUP PO SCH ×2 (08:44→20:34)
[2021-11-22] MEDS: PREGABALIN 50 MG CAPSULE PO SCH (08:50)
[2021-11-22] MEDS: FUROSEMIDE 40 MG TABLET PO SCH (08:50)
[2021-11-22] MEDS: METOPROLOL TARTRATE 50 MG TABLET PO SCH ×2 (08:50→17:00)
[2021-11-22] MEDS: ASCORBIC ACID 500 MG TABLET PO SCH ×2 (08:51→17:00)
[2021-11-22] MEDS: MEGESTROL ACETATE 400 MG/10 ML SUSPENSION UDCUP PO SCH ×2 (08:51→17:00)
[2021-11-22] MEDS: NICOTINE 21 MG/24 HOUR PATCH TD SCH (08:51)
[2021-11-22] MEDS: MULTIVITAMINS WITH MINERALS, THERAPEUTIC TABLET PO SCH (08:51)
[2021-11-23] MEDS: METOPROLOL TARTRATE 50 MG TABLET PO SCH ×2 (09:00→17:00)
[2021-11-23] MEDS: PREGABALIN 50 MG CAPSULE PO SCH (09:00)
[2021-11-23] MEDS: FUROSEMIDE 40 MG TABLET PO SCH (09:00)
[2021-11-23] MEDS: MEGESTROL ACETATE 400 MG/10 ML SUSPENSION UDCUP PO SCH ×2 (09:00→17:00)
[2021-11-23] MEDS: MULTIVITAMINS WITH MINERALS, THERAPEUTIC TABLET PO SCH (09:00)
[2021-11-23] MEDS: NICOTINE 21 MG/24 HOUR PATCH TD SCH (09:00)
[2021-11-23] MEDS: ASCORBIC ACID 500 MG TABLET PO SCH ×2 (09:00→17:00)
[2021-11-23] MEDS: VALPROIC ACID 250 MG/5 ML SOLUTION UDCUP PO SCH ×2 (09:10→20:49)
[2021-11-24] MEDS: FUROSEMIDE 40 MG TABLET PO SCH (09:00)
[2021-11-24] MEDS: MULTIVITAMINS WITH MINERALS, THERAPEUTIC TABLET PO SCH (09:00)
[2021-11-24] MEDS: PREGABALIN 50 MG CAPSULE PO SCH (09:00)
[2021-11-24] MEDS: MEGESTROL ACETATE 400 MG/10 ML SUSPENSION UDCUP PO SCH ×2 (09:00→17:00)
[2021-11-24] MEDS: METOPROLOL TARTRATE 50 MG TABLET PO SCH ×2 (09:00→17:00)
[2021-11-24] MEDS: ASCORBIC ACID 500 MG TABLET PO SCH ×2 (09:00→17:00)
[2021-11-24] MEDS: NICOTINE 21 MG/24 HOUR PATCH TD SCH (09:00)
[2021-11-24] MEDS: VALPROIC ACID 250 MG/5 ML SOLUTION UDCUP PO SCH ×2 (09:35→20:25)
[2021-11-24 11:02] LABS: COVID AG,FIA SOURCE NASAL SWAB
[2021-11-25] MEDS: MULTIVITAMINS WITH MINERALS, THERAPEUTIC TABLET PO SCH (09:00)
[2021-11-25] MEDS: METOPROLOL TARTRATE 50 MG TABLET PO SCH ×2 (09:00→17:00)
[2021-11-25] MEDS: ASCORBIC ACID 500 MG TABLET PO SCH ×2 (09:00→17:00)
[2021-11-25] MEDS: PREGABALIN 50 MG CAPSULE PO SCH (09:00)
[2021-11-25] MEDS: FUROSEMIDE 40 MG TABLET PO SCH (09:00)
[2021-11-25] MEDS: MEGESTROL ACETATE 400 MG/10 ML SUSPENSION UDCUP PO SCH ×2 (09:00→17:00)
[2021-11-25] MEDS: NICOTINE 21 MG/24 HOUR PATCH TD SCH (09:00)
[2021-11-25] MEDS: VALPROIC ACID 250 MG/5 ML SOLUTION UDCUP PO SCH ×2 (10:56→20:21)
[2021-11-26] MEDS: VALPROIC ACID 250 MG/5 ML SOLUTION UDCUP PO SCH ×2 (08:15→20:02)
[2021-11-26] MEDS: ASCORBIC ACID 500 MG TABLET PO SCH ×2 (09:00→17:00)
[2021-11-26] MEDS: MEGESTROL ACETATE 400 MG/10 ML SUSPENSION UDCUP PO SCH ×2 (09:00→17:00)
[2021-11-26] MEDS: NICOTINE 21 MG/24 HOUR PATCH TD SCH (09:00)
[2021-11-26] MEDS: METOPROLOL TARTRATE 50 MG TABLET PO SCH ×2 (09:00→17:00)
[2021-11-26] MEDS: FUROSEMIDE 40 MG TABLET PO SCH (09:00)
[2021-11-26] MEDS: PREGABALIN 50 MG CAPSULE PO SCH (09:00)
[2021-11-26] MEDS: MULTIVITAMINS WITH MINERALS, THERAPEUTIC TABLET PO SCH (09:00)
[2021-11-27] MEDS: VALPROIC ACID 250 MG/5 ML SOLUTION UDCUP PO SCH ×2 (08:33→20:27)
[2021-11-27] MEDS: PREGABALIN 50 MG CAPSULE PO SCH (09:00)
[2021-11-27] MEDS: METOPROLOL TARTRATE 50 MG TABLET PO SCH ×2 (09:00→16:50)
[2021-11-27] MEDS: ASCORBIC ACID 500 MG TABLET PO SCH ×2 (09:00→16:50)
[2021-11-27] MEDS: FUROSEMIDE 40 MG TABLET PO SCH (09:00)
[2021-11-27] MEDS: NICOTINE 21 MG/24 HOUR PATCH TD SCH (09:00)
[2021-11-27] MEDS: MULTIVITAMINS WITH MINERALS, THERAPEUTIC TABLET PO SCH (09:00)
[2021-11-27] MEDS: MEGESTROL ACETATE 400 MG/10 ML SUSPENSION UDCUP PO SCH ×2 (09:00→16:50)
[2021-11-28] MEDS: FUROSEMIDE 40 MG TABLET PO SCH (09:00)
[2021-11-28] MEDS: MEGESTROL ACETATE 400 MG/10 ML SUSPENSION UDCUP PO SCH ×2 (09:00→16:45)
[2021-11-28] MEDS: NICOTINE 21 MG/24 HOUR PATCH TD SCH (09:00)
[2021-11-28] MEDS: PREGABALIN 50 MG CAPSULE PO SCH (09:00)
[2021-11-28] MEDS: METOPROLOL TARTRATE 50 MG TABLET PO SCH ×2 (09:00→16:45)
[2021-11-28] MEDS: ASCORBIC ACID 500 MG TABLET PO SCH ×2 (09:00→16:45)
[2021-11-28] MEDS: MULTIVITAMINS WITH MINERALS, THERAPEUTIC TABLET PO SCH (09:00)
[2021-11-28] MEDS: VALPROIC ACID 250 MG/5 ML SOLUTION UDCUP PO SCH ×2 (09:12→20:32)
[2021-11-29] MEDS: VALPROIC ACID 250 MG/5 ML SOLUTION UDCUP PO SCH (08:28)
[2021-11-29] MEDS: METOPROLOL TARTRATE 50 MG TABLET PO SCH (09:00)
[2021-11-29] MEDS: MEGESTROL ACETATE 400 MG/10 ML SUSPENSION UDCUP PO SCH (09:00)
[2021-11-29] MEDS: NICOTINE 21 MG/24 HOUR PATCH TD SCH (09:00)
[2021-11-29] MEDS: MULTIVITAMINS WITH MINERALS, THERAPEUTIC TABLET PO SCH (09:00)
[2021-11-29] MEDS: ASCORBIC ACID 500 MG TABLET PO SCH (09:00)
[2021-11-29] MEDS: PREGABALIN 50 MG CAPSULE PO SCH (09:00)
[2021-11-29] MEDS: FUROSEMIDE 40 MG TABLET PO SCH (09:00)
[2021-11-29] MEDS ORDERED: ARIPiprazole LAUROXIL ER SUSPENSION 882 MG/3.2 ML SYRINGE IM SCH (11:00)
[2021-11-29] MEDS ORDERED: MULT-1239 PO (14:28)
[2021-11-29] MEDS ORDERED: METO50 PO (14:28)
[2021-11-29] MEDS ORDERED: FURO40TA5 PO (14:28)
[2021-11-29] MEDS ORDERED: PREG50CA63 PO (14:28)
[2021-11-29] MEDS ORDERED: MEGE400O4 PO (14:28)
[2021-11-29] MEDS ORDERED: ASCO500 PO (14:28)
[2021-11-29] MEDS ORDERED: VALP250S23 PO (14:28)
[2021-11-29] MEDS ORDERED: ARIP882S2 IM (14:28)
== END 2021-11-29 14:36 | disposition home or self-care (01) | DRG 885 ==
LOC: 3EI 18:15 → 3EX 09-21 20:30 → 3EI 10-05 12:35
PROVIDERS: ADMIT Psychiatry & Neurology Psychiatry; ATTEND Psychiatry & Neurology Psychiatry
DX: F20.0 Paranoid schizophrenia (principal); F06.4 Anxiety disorder due to known physiological condition; I11.0 Hypertensive heart disease with heart failure; H33.22 Serous retinal detachment, left eye; R45.851 Suicidal ideations; Z20.822 Contact with and (suspected) exposure to COVID-19; E78.5 Hyperlipidemia, unspecified; F32.A Depression, unspecified; H54.8 Legal blindness, as defined in USA; I50.9 Heart failure, unspecified; I48.91 Unspecified atrial fibrillation; R32 Unspecified urinary incontinence; Z59.00 Homelessness unspecified; Z91.14 Patient's other noncompliance with medication regimen; Z91.81 History of falling
CPT/HCPCS: 70486; 80053; 80307; 81001; G0378; J1200; J1630; J2060; J3230; J3490; Q9967

== ENCOUNTER 2021-12-05 16:33 | Emergency (ER) | payer OTHER ==
[~2021-12-05] VITALS: Ht 185.4 cm; Wt 104.5 kg
[~2021-12-05 16:33] MED LIST changes: +ARIP882S2 IM; +ASCO500 PO; -DABI150 PO; +MEGE400O4 PO; -RISP1TAB48 PO; +VALP250S23 PO
[2021-12-05] MEDS ORDERED: LOPERAMIDE HCL 2 MG CAPSULE PO ONE (17:30)
[2021-12-05 18:36] LABS: BASOPHILS % (AUTO) 0.8 % (0.0-2.0); EOSINOPHILS % (AUTO) 3.6 % (1.0-6.0); HEMATOCRIT 49.7 % (41-53); HEMOGLOBIN 17.1 g/dL (13.5-17.5); LYMPHOCYTES # (AUTO) 1.7 K/uL (1.0-4.8); LYMPHOCYTES % (AUTO) 24.3 % (22.0-44.0); MEAN CORPUSCULAR HEMOGLOBIN 30.3 pg (26.0-34.0); MEAN CORPUSCULAR HGB CONC 34.5 G/dL (31.0-37.0); MEAN CORPUSCULAR VOLUME 88 fL (80-100); MONOCYTES # (AUTO) 0.4 K/uL (0.1-1.0); MONOCYTES % (AUTO) 5.6 % (2.0-9.0); NEUTROPHILS # (AUTO) 4.7 K/uL (1.8-7.7); NEUTROPHILS % (AUTO) 65.7 % (40.0-70.0); PLATELET COUNT (AUTO) 122 K/uL (150-450); RED BLOOD CELL COUNT(AUTO) 5.65 MIL/uL (4.50-5.90); RED CELL DISTRIBUTION WIDTH 15.5 % (11.5-14.5)
[2021-12-05 18:48] LABS: CALCIUM, TOTAL 8.7 mg/dL (8.8-10.5); CREATININE 1.32 mg/dL (0.60-1.30); POTASSIUM 3.5 mmol/L (3.5-5.1)
[2021-12-05 18:51] LABS: ALBUMIN 3.1 g/dL (3.4-5.0); TOTAL PROTEIN, SERUM 6.2 g/dL (6.4-8.2)
[2021-12-05 23:37] VITALS: BP 110/70
== END 2021-12-05 23:10 | disposition home or self-care (01) ==
LOC: EMS 16:33
DX: R19.7 Diarrhea, unspecified (principal); F20.0 Paranoid schizophrenia; I11.0 Hypertensive heart disease with heart failure; I50.9 Heart failure, unspecified; H33.20 Serous retinal detachment, unspecified eye; H54.8 Legal blindness, as defined in USA
CPT/HCPCS: 80053; 85025; 99281; 99283